=== PATIENT | male | born 1930 | race Caucasian/White ===

== ENCOUNTER 2016-10-24 08:23 | Inpatient (IN) | payer MEDICARE, OTHER ==
[2016-10-24] MEDS ORDERED: Polyvinyl Alcohol 1.4% Ophth Soln 15 ML Bottle EYEBOTH PRN (12:29)
[2016-10-24] MEDS ORDERED: Calcium Carbonate 500 MG Tab.Chew PO PRN (12:29)
[2016-10-24] MEDS ORDERED: Lactulose Soln 10 GM/15 ML 15 ML UD Cup PO PRN (12:29)
[2016-10-24] MEDS: Acetaminophen 500 MG Tab PO SCH ×2 (14:32→20:35)
--- NOTE | 2016-10-24 18:41 | PCM.HP ---
H&P History of Present Illness - General Date of Service: 10/24/16 Admit Problem/Dx: Admission Diagnosis/Problem Admission Diagnosis/Problem Fracture of femur Source of Information: [facility] Records History Limitations: Reports: No Limitations - History of Present Illness Initial Comments - Free Text/Narative: This is a 86-year-old male patient that fell less than a week ago broke his right hip. Seen in [facility] and had a partial hip replacement. He is doing well and is transferred here for swing bed. He says he has some pain. He has no other concerns. Back Pain Score (Numeric/FACES): 9 - Related Data Allergies/Adverse Reactions: Allergies Allergy/AdvReac Type Severity Reaction Status Date / Time fentanyl Allergy Rash Verified 10/24/16 10:58 Home Medications: Home Meds Acetaminophen [Tylenol Extra Strength] 1,000 mg PO TID 10/24/16 [History] Calcium Carbonate [Tums] 1,000 mg PO Q4H PRN 10/24/16 [History] Calcium Carbonate [Tums] 500 mg PO BID 10/24/16 [History] Cholecalciferol (Vitamin D3) [Vitamin D3] 2,000 units PO DAILY 10/24/16 [History ] Dextran 70/Hypromellose [Artificial Tears] 1 drop EYEBOTH Q4H PRN 10/24/16 [ History] Docusate Sodium [Colace] 100 mg PO DAILY 10/24/16 [History] Docusate Sodium [Colace] 300 mg PO BEDTIME 10/24/16 [History] Donepezil [Aricept] 5 mg PO BEDTIME 10/24/16 [History] Enalapril [Vasotec] 5 mg PO DAILY 10/24/16 [History] Enoxaparin [Lovenox] 40 mg SUBCUT DAILY 10/24/16 [History] Gabapentin [Gabapentin] 300 mg PO BID 10/24/16 [History] Lactulose 10 gm PO DAILY PRN 10/24/16 [History] Metoprolol Tartrate [Lopressor] 12.5 mg PO BID 10/24/16 [History] Polyethylene Glycol 3350 [MiraLAX] 17 gm PO DAILY 10/24/16 [History] Ranitidine [Zantac] 150 mg PO BID 10/24/16 [History] Sennosides/Docusate Sodium [Senokot-S Tablet] 1 each PO BID 10/24/16 [History] Tamsulosin [Tamsulosin 24 Hr] 0.4 mg PO DAILY 10/24/16 [History] oxyCODONE 5 mg PO Q6H PRN 10/24/16 [History] oxyCODONE [Oxycodone HCl] 10 mg PO Q4H PRN 10/24/16 [History] Past Medical History HEENT History: Reports: Cataract, Glaucoma Other HEENT History: Presbyopia, astigmatism, retinal disorder, hypermetropia, blepharitis Cardiovascular History: Reports: Hypertension Gastrointestinal History: Reports: GERD Musculoskeletal History: Reports: Arthritis, Osteoarthritis Neurological History: Reports: Alzheimers Disease Psychiatric History: Reports: Alzheimers Disease, Dementia Other Oncologic History: chronic lymphocytic leukemia - Infectious Disease History Infectious Disease History: Reports: Chicken Pox, Measles, Mumps - Past Surgical History HEENT Surgical History: Reports: None GI Surgical History: Reports: None Other Neurological Surgeries/Procedures: spinal implant Musculoskeletal Surgical History: Reports: Other (See Below) Other Musculoskeletal Surgeries/Procedures:: hip surgery, current. Back pain, spinal implant Social & Family History - Family History Family Medical History: Noncontributory - Tobacco Use Smoking Status *Q: Former Smoker Used Tobacco, but Quit: Yes Month Tobacco Last Used: October Second Hand Smoke Exposure: No - Caffeine Use Caffeine Use: Reports: None - Alcohol Use Days Per Week of Alcohol Use: 7 Number of Drinks Per Day: 1 Total Drinks Per Week: 7 - Recreational Drug Use Recreational Drug Use: No H&P Review of Systems - Review of Systems: Review Of Systems: See Below General: Reports: No Symptoms HEENT: Reports: No Symptoms Pulmonary: Reports: No Symptoms Cardiovascular: Reports: No Symptoms Gastrointestinal: Reports: No Symptoms Genitourinary: Reports: No Symptoms Musculoskeletal: Reports: Joint Pain Skin: Reports: No Symptoms Psychiatric: Reports: No Symptoms Neurological: Reports: No Symptoms Hematologic/Lymphatic: Reports: No Symptoms Immunologic: Reports: No Symptoms Exam - Exam Exam: See Below - Vital Signs Vital Signs: Last Vital Signs Temp 98.1 F 10/24/16 12:26 Pulse 82 10/24/16 12:26 Resp 16 10/24/16 12:26 BP 84/45 L 10/24/16 12:26 Pulse Ox 95 10/24/16 12:26 Weight: 169 lb 15.622 oz - Exam General: Alert, Oriented, Cooperative HEENT: Posterior Pharynx Clear, TMs Clear Neck: Supple, Trachea Midline Lungs: Clear to Auscultation, Normal Respiratory Effort Cardiovascular: Regular Rate, Regular Rhythm. No: Systolic Murmur Abdomen: Normal Bowel Sounds, Soft. No: Peritoneal Signs, Distention, Guarding Back Exam: Normal Inspection Extremities: Normal Inspection Skin: Other (Wound right hip is healed nicely. No erythema or drainage.) Neurological: Normal Tone Neuro Extensive - Mental Status: Alert, Oriented x3, Normal Mood/Affect, Normal Cognition Neuro Extensive - Motor, Sensory, Reflexes: No: Normal Gait Psychiatric: Alert, Normal Affect, Normal Mood *Q Meaningful Use (ADM) - VTE *Q VTE Criteria *Q: - Stroke *Q Stroke Criteria *Q: - AMI *Q AMI Criteria *Q: - Problem List (1) H/O total hip arthroplasty SNOMED Code(s): 380603075496, [id number] ICD Code: Z96.649 - PRESENCE OF UNSPECIFIED ARTIFICIAL HIP JOINT Status: Acute Current Visit: Yes Problem List Initiated/Reviewed/Updated: Yes Orders Last 24hrs: Active Orders 24 hr Category Date Time Status Patient Status [ADT] Routine ADT 10/24/16 12:26 Active Oxygen Therapy [RC] PRN Care 10/24/16 12:26 Active Up With Assistance [RC] ASDIRECTED Care 10/24/16 12:26 Active Vital Signs [RC] 08 Care 10/24/16 12:26 Active Weight [Height and Weight] [RC] .qTue Care 10/24/16 14:44 Active OT Evaluation and Treatment [CONS] Routine Cons 10/24/16 12:26 Active PT Evaluation and Treatment [CONS] Routine Cons 10/24/16 12:26 Active Regular Diet [DIET] Diet 10/24/16 Dinner Active Acetaminophen [Tylenol Extra Strength] Med 10/24/16 14:00 Active 1,000 mg PO TID Calcium Carbonate [Tums] Med 10/24/16 12:29 Active 1,000 mg PO Q4H PRN Calcium Carbonate [Tums] Med 10/24/16 21:00 Active 500 mg PO BID Cholecalciferol (Vitamin D3) [Vitamin D3] Med 10/25/16 09:00 Active 2,000 units PO DAILY Docusate Sodium [Colace] Med 10/25/16 09:00 Active 100 mg PO DAILY Docusate Sodium [Colace] Med 10/24/16 21:00 Active 300 mg PO BEDTIME Docusate Sodium/Sennosides [Senna Plus] Med 10/24/16 21:00 Active 1 tab PO BID Donepezil [Aricept] Med 10/24/16 21:00 Active 5 mg PO BEDTIME Enalapril [Vasotec] Med 10/25/16 09:00 Active 5 mg PO DAILY Enoxaparin [Lovenox] Med 10/25/16 09:00 Active 40 mg SUBCUT DAILY Famotidine [Pepcid] Med 10/24/16 21:00 Active 20 mg PO BID Gabapentin [Neurontin] Med 10/24/16 21:00 Active 300 mg PO BID Lactulose [Chronulac] Med 10/24/16 12:29 Active 10 gm PO DAILY PRN Metoprolol Tartrate [Lopressor] Med 10/24/16 21:00 Active 12.5 mg PO BID Polyethylene Glycol 3350 [MiraLAX] Med 10/25/16 09:00 Active 17 gm PO DAILY Polyvinyl Alcohol [LiquiTears 1.4% Ophth Soln] Med 10/24/16 12:29 Active 0 ml EYEBOTH Q4H PRN Tamsulosin [Flomax] Med 10/25/16 09:00 Active 0.4 mg PO DAILY oxyCODONE Med 10/24/16 12:29 Active 10 mg PO Q4H PRN oxyCODONE Med 10/24/16 12:29 Active 5 mg PO Q6H PRN Resuscitation Status Routine Resus Stat 10/24/16 12:26 Ordered Medication Orders Acetaminophen (Tylenol Extra Strength) 1,000 mg PO TID [facility] Last Admin: 10/24/16 14:32 Dose: 1,000 mg Artificial Tears (Liquitears 1.4% Ophth Soln) 0 ml EYEBOTH Q4H PRN PRN Reason: Dry Eyes Calcium Carbonate/Glycine (Tums) 500 mg PO BID [facility] Calcium Carbonate/Glycine (Tums) 1,000 mg PO Q4H PRN PRN Reason: Heartburn Cholecalciferol (Vitamin D3) 2,000 units PO DAILY [facility] Docusate Sodium (Colace) 100 mg PO DAILY [facility] Docusate Sodium (Colace) 300 mg PO BEDTIME [facility] Donepezil HCl (Aricept) 5 mg PO BEDTIME [facility] Enalapril Maleate (Vasotec) 5 mg PO DAILY [facility] Enoxaparin Sodium (Lovenox) 40 mg SUBCUT DAILY [facility] Famotidine (Pepcid) 20 mg PO BID [facility] Gabapentin (Neurontin) 300 mg PO BID [facility] Lactulose (Chronulac) 10 gm PO DAILY PRN PRN Reason: Constipation Metoprolol Tartrate (Lopressor) 12.5 mg PO BID [facility] Oxycodone HCl (Oxycodone) 5 mg PO Q6H PRN PRN Reason: Pain (moderate 4-6) Oxycodone HCl (Oxycodone) 10 mg PO Q4H PRN PRN Reason: Pain (severe 7-10) Polyethylene Glycol (Miralax) 17 gm PO DAILY [facility] Senna/Docusate Sodium (Senna Plus) 1 tab PO BID [facility] Tamsulosin HCl (Flomax) 0.4 mg PO DAILY [facility] Assessment/Plan Comment:: 1. Admit to swing bed for PT/OT. 2. Regular diet. 3. Up per PT/OT. 5. Full code.
[2016-10-24] MEDS: oxyCODONE 5 MG Tab PO PRN (20:21)
[2016-10-24] MEDS: Donepezil 5 MG Tab PO SCH (20:35)
[2016-10-24] MEDS: Gabapentin 300 MG Cap PO SCH (20:35)
[2016-10-24] MEDS: Famotidine 20 MG Tab PO SCH (20:35)
[2016-10-24] MEDS: Docusate Sodium 100 MG Cap PO SCH (20:35)
[2016-10-24] MEDS: Metoprolol Tartrate 25 MG Tab PO SCH (20:36)
[2016-10-24] MEDS: Calcium Carbonate 500 MG Tab.Chew PO SCH (20:36)
[2016-10-25] MEDS: oxyCODONE 5 MG Tab PO PRN ×3 (06:51→18:55)
[2016-10-25] MEDS: Metoprolol Tartrate 25 MG Tab PO SCH ×2 (08:57→20:42)
[2016-10-25] MEDS: Tamsulosin 0.4 MG Cap.ER PO SCH (08:57)
[2016-10-25] MEDS: Docusate Sodium 100 MG Cap PO SCH ×2 (08:57→20:40)
[2016-10-25] MEDS: Famotidine 20 MG Tab PO SCH ×2 (08:58→20:41)
[2016-10-25] MEDS: Calcium Carbonate 500 MG Tab.Chew PO SCH (08:58)
[2016-10-25] MEDS: Enoxaparin 40 MG/0.4 ML Syringe SUBCUT SCH (08:58)
[2016-10-25] MEDS: Enalapril 5 MG Tab PO SCH (08:58)
[2016-10-25] MEDS: Cholecalciferol (Vitamin D3) 1,000 Unit Tab PO SCH (08:58)
[2016-10-25] MEDS: Gabapentin 300 MG Cap PO SCH ×2 (08:58→20:41)
[2016-10-25] MEDS: Acetaminophen 500 MG Tab PO SCH ×3 (08:58→20:42)
[2016-10-25] MEDS: Polyethylene Glycol 3350 Powder 17 GM Packet PO SCH (08:58)
[2016-10-25] MEDS ORDERED: Magnesium Hydroxide 400 MG/5 ML Susp 30 ML Cup PO PRN (13:52)
[2016-10-25] MEDS: Donepezil 5 MG Tab PO SCH (20:39)
[2016-10-26] MEDS: Calcium Carbonate 500 MG Tab.Chew PO SCH ×4 (00:56→21:06)
[2016-10-26] MEDS: Docusate Sodium 100 MG Cap PO SCH ×2 (09:29→21:07)
[2016-10-26] MEDS: Metoprolol Tartrate 25 MG Tab PO SCH ×2 (09:29→21:07)
[2016-10-26] MEDS: Tamsulosin 0.4 MG Cap.ER PO SCH (09:29)
[2016-10-26] MEDS: Polyethylene Glycol 3350 Powder 17 GM Packet PO SCH (09:30)
[2016-10-26] MEDS: Gabapentin 300 MG Cap PO SCH ×2 (09:30→21:06)
[2016-10-26] MEDS: Enoxaparin 40 MG/0.4 ML Syringe SUBCUT SCH (09:30)
[2016-10-26] MEDS: Acetaminophen 500 MG Tab PO SCH ×3 (09:31→21:06)
[2016-10-26] MEDS: Cholecalciferol (Vitamin D3) 1,000 Unit Tab PO SCH (09:31)
[2016-10-26] MEDS: Enalapril 5 MG Tab PO SCH (09:31)
[2016-10-26] MEDS: Famotidine 20 MG Tab PO SCH ×2 (09:46→21:05)
[2016-10-26] MEDS: oxyCODONE 5 MG Tab PO PRN ×2 (13:17→18:27)
[2016-10-26] MEDS: Donepezil 5 MG Tab PO SCH (21:06)
[2016-10-27] MEDS: oxyCODONE 5 MG Tab PO PRN ×3 (04:39→18:55)
[2016-10-27] MEDS: Enoxaparin 40 MG/0.4 ML Syringe SUBCUT SCH (09:13)
[2016-10-27] MEDS: Tamsulosin 0.4 MG Cap.ER PO SCH (09:13)
[2016-10-27] MEDS: Polyethylene Glycol 3350 Powder 17 GM Packet PO SCH (09:13)
[2016-10-27] MEDS: Metoprolol Tartrate 25 MG Tab PO SCH ×2 (09:13→20:35)
[2016-10-27] MEDS: Docusate Sodium 100 MG Cap PO SCH ×2 (09:13→20:34)
[2016-10-27] MEDS: Cholecalciferol (Vitamin D3) 1,000 Unit Tab PO SCH (09:14)
[2016-10-27] MEDS: Enalapril 5 MG Tab PO SCH (09:14)
[2016-10-27] MEDS: Gabapentin 300 MG Cap PO SCH ×2 (09:14→20:38)
[2016-10-27] MEDS: Acetaminophen 500 MG Tab PO SCH ×3 (09:14→20:39)
[2016-10-27] MEDS: Famotidine 20 MG Tab PO SCH ×2 (09:14→20:39)
[2016-10-27] MEDS: Calcium Carbonate 500 MG Tab.Chew PO SCH ×2 (09:14→20:39)
[2016-10-27] MEDS: Donepezil 5 MG Tab PO SCH (20:34)
[2016-10-28] MEDS: oxyCODONE 5 MG Tab PO PRN ×2 (00:43→20:52)
[2016-10-28] MEDS: Metoprolol Tartrate 25 MG Tab PO SCH ×2 (08:10→20:47)
[2016-10-28] MEDS: Docusate Sodium 100 MG Cap PO SCH ×2 (08:10→20:44)
[2016-10-28] MEDS: Tamsulosin 0.4 MG Cap.ER PO SCH (08:10)
[2016-10-28] MEDS: Enoxaparin 40 MG/0.4 ML Syringe SUBCUT SCH (08:11)
[2016-10-28] MEDS: Gabapentin 300 MG Cap PO SCH ×2 (08:12→20:45)
[2016-10-28] MEDS: Famotidine 20 MG Tab PO SCH ×2 (08:12→20:46)
[2016-10-28] MEDS: Acetaminophen 500 MG Tab PO SCH ×3 (08:13→20:48)
[2016-10-28] MEDS: Enalapril 5 MG Tab PO SCH (08:13)
[2016-10-28] MEDS: Cholecalciferol (Vitamin D3) 1,000 Unit Tab PO SCH (08:14)
[2016-10-28] MEDS: Polyethylene Glycol 3350 Powder 17 GM Packet PO SCH (08:15)
[2016-10-28] MEDS: Calcium Carbonate 500 MG Tab.Chew PO SCH ×2 (08:15→20:48)
[2016-10-28] MEDS: Donepezil 5 MG Tab PO SCH (20:44)
[2016-10-29] MEDS: oxyCODONE 5 MG Tab PO PRN ×3 (04:03→20:15)
[2016-10-29] MEDS: Docusate Sodium 100 MG Cap PO SCH ×2 (08:22→20:08)
[2016-10-29] MEDS: Tamsulosin 0.4 MG Cap.ER PO SCH (08:25)
[2016-10-29] MEDS: Metoprolol Tartrate 25 MG Tab PO SCH ×2 (08:26→20:11)
[2016-10-29] MEDS: Enoxaparin 40 MG/0.4 ML Syringe SUBCUT SCH (08:27)
[2016-10-29] MEDS: Gabapentin 300 MG Cap PO SCH ×2 (08:29→20:09)
[2016-10-29] MEDS: Polyethylene Glycol 3350 Powder 17 GM Packet PO SCH (08:29)
[2016-10-29] MEDS: Famotidine 20 MG Tab PO SCH ×2 (08:30→20:10)
[2016-10-29] MEDS: Calcium Carbonate 500 MG Tab.Chew PO SCH ×2 (08:31→20:12)
[2016-10-29] MEDS: Acetaminophen 500 MG Tab PO SCH ×3 (08:31→20:12)
[2016-10-29] MEDS: Enalapril 5 MG Tab PO SCH (08:32)
[2016-10-29] MEDS: Cholecalciferol (Vitamin D3) 1,000 Unit Tab PO SCH (08:32)
[2016-10-29] MEDS: Donepezil 5 MG Tab PO SCH (20:08)
[2016-10-30] MEDS: oxyCODONE 5 MG Tab PO PRN ×3 (07:50→22:02)
[2016-10-30] MEDS: Docusate Sodium 100 MG Cap PO SCH ×2 (09:40→20:54)
[2016-10-30] MEDS: Metoprolol Tartrate 25 MG Tab PO SCH ×2 (09:41→21:05)
[2016-10-30] MEDS: Tamsulosin 0.4 MG Cap.ER PO SCH (09:41)
[2016-10-30] MEDS: Enoxaparin 40 MG/0.4 ML Syringe SUBCUT SCH (09:43)
[2016-10-30] MEDS: Gabapentin 300 MG Cap PO SCH ×2 (09:44→20:55)
[2016-10-30] MEDS: Polyethylene Glycol 3350 Powder 17 GM Packet PO SCH (09:44)
[2016-10-30] MEDS: Famotidine 20 MG Tab PO SCH ×2 (09:45→20:55)
[2016-10-30] MEDS: Calcium Carbonate 500 MG Tab.Chew PO SCH ×2 (09:45→20:55)
[2016-10-30] MEDS: Acetaminophen 500 MG Tab PO SCH ×3 (09:46→20:55)
[2016-10-30] MEDS: Enalapril 5 MG Tab PO SCH (09:46)
[2016-10-30] MEDS: Cholecalciferol (Vitamin D3) 1,000 Unit Tab PO SCH (09:47)
[2016-10-30] MEDS: Donepezil 5 MG Tab PO SCH (20:54)
[2016-10-31] MEDS: oxyCODONE 5 MG Tab PO PRN ×2 (06:51→16:44)
[2016-10-31] MEDS: Metoprolol Tartrate 25 MG Tab PO SCH ×2 (08:45→20:01)
[2016-10-31] MEDS: Docusate Sodium 100 MG Cap PO SCH ×2 (08:45→20:00)
[2016-10-31] MEDS: Tamsulosin 0.4 MG Cap.ER PO SCH (08:45)
[2016-10-31] MEDS: Famotidine 20 MG Tab PO SCH ×2 (08:46→20:03)
[2016-10-31] MEDS: Enalapril 5 MG Tab PO SCH (08:46)
[2016-10-31] MEDS: Gabapentin 300 MG Cap PO SCH ×2 (08:46→20:02)
[2016-10-31] MEDS: Calcium Carbonate 500 MG Tab.Chew PO SCH ×2 (08:46→20:03)
[2016-10-31] MEDS: Acetaminophen 500 MG Tab PO SCH ×3 (08:46→20:04)
[2016-10-31] MEDS: Cholecalciferol (Vitamin D3) 1,000 Unit Tab PO SCH (08:47)
[2016-10-31] MEDS: Polyethylene Glycol 3350 Powder 17 GM Packet PO SCH (08:49)
[2016-10-31] MEDS: Enoxaparin 40 MG/0.4 ML Syringe SUBCUT SCH (08:49)
[2016-10-31] MEDS: Donepezil 5 MG Tab PO SCH (19:59)
[2016-11-01] MEDS: Tamsulosin 0.4 MG Cap.ER PO SCH (08:47)
[2016-11-01] MEDS: Metoprolol Tartrate 25 MG Tab PO SCH ×2 (08:47→20:59)
[2016-11-01] MEDS: Enoxaparin 40 MG/0.4 ML Syringe SUBCUT SCH (08:47)
[2016-11-01] MEDS: Docusate Sodium 100 MG Cap PO SCH ×2 (08:47→20:59)
[2016-11-01] MEDS: Polyethylene Glycol 3350 Powder 17 GM Packet PO SCH (08:48)
[2016-11-01] MEDS: Gabapentin 300 MG Cap PO SCH ×2 (08:48→21:00)
[2016-11-01] MEDS: Famotidine 20 MG Tab PO SCH ×2 (08:48→21:00)
[2016-11-01] MEDS: Cholecalciferol (Vitamin D3) 1,000 Unit Tab PO SCH (08:50)
[2016-11-01] MEDS: Calcium Carbonate 500 MG Tab.Chew PO SCH ×2 (08:50→21:01)
[2016-11-01] MEDS: Acetaminophen 500 MG Tab PO SCH ×3 (08:50→21:01)
[2016-11-01] MEDS: Enalapril 5 MG Tab PO SCH (08:50)
[2016-11-01] MEDS: oxyCODONE 5 MG Tab PO PRN ×2 (08:53→17:23)
[2016-11-01] MEDS: Donepezil 5 MG Tab PO SCH (20:59)
[2016-11-02] MEDS: oxyCODONE 5 MG Tab PO PRN ×3 (08:28→20:15)
[2016-11-02] MEDS: Docusate Sodium 100 MG Cap PO SCH ×2 (08:31→20:16)
[2016-11-02] MEDS: Tamsulosin 0.4 MG Cap.ER PO SCH (08:31)
[2016-11-02] MEDS: Metoprolol Tartrate 25 MG Tab PO SCH ×2 (08:31→20:16)
[2016-11-02] MEDS: Enoxaparin 40 MG/0.4 ML Syringe SUBCUT SCH (08:33)
[2016-11-02] MEDS: Polyethylene Glycol 3350 Powder 17 GM Packet PO SCH (08:34)
[2016-11-02] MEDS: Famotidine 20 MG Tab PO SCH ×2 (08:34→20:17)
[2016-11-02] MEDS: Gabapentin 300 MG Cap PO SCH ×2 (08:34→20:17)
[2016-11-02] MEDS: Calcium Carbonate 500 MG Tab.Chew PO SCH ×2 (08:35→20:17)
[2016-11-02] MEDS: Acetaminophen 500 MG Tab PO SCH ×3 (08:35→20:17)
[2016-11-02] MEDS: Cholecalciferol (Vitamin D3) 1,000 Unit Tab PO SCH (08:36)
[2016-11-02] MEDS: Enalapril 5 MG Tab PO SCH (08:36)
[2016-11-02] MEDS: Donepezil 5 MG Tab PO SCH (20:16)
[2016-11-03] MEDS: oxyCODONE 5 MG Tab PO PRN ×3 (07:48→22:16)
[2016-11-03] MEDS: Metoprolol Tartrate 25 MG Tab PO SCH ×2 (08:42→20:50)
[2016-11-03] MEDS: Tamsulosin 0.4 MG Cap.ER PO SCH (08:42)
[2016-11-03] MEDS: Docusate Sodium 100 MG Cap PO SCH ×2 (08:42→20:48)
[2016-11-03] MEDS: Famotidine 20 MG Tab PO SCH ×2 (08:43→20:49)
[2016-11-03] MEDS: Enoxaparin 40 MG/0.4 ML Syringe SUBCUT SCH (08:43)
[2016-11-03] MEDS: Cholecalciferol (Vitamin D3) 1,000 Unit Tab PO SCH (08:43)
[2016-11-03] MEDS: Enalapril 5 MG Tab PO SCH (08:43)
[2016-11-03] MEDS: Acetaminophen 500 MG Tab PO SCH ×3 (08:43→20:50)
[2016-11-03] MEDS: Calcium Carbonate 500 MG Tab.Chew PO SCH ×2 (08:43→20:49)
[2016-11-03] MEDS: Gabapentin 300 MG Cap PO SCH ×2 (08:43→20:48)
[2016-11-03] MEDS: Polyethylene Glycol 3350 Powder 17 GM Packet PO SCH (08:43)
[2016-11-03] MEDS: Donepezil 5 MG Tab PO SCH (20:54)
[2016-11-04] MEDS: oxyCODONE 5 MG Tab PO PRN (08:26)
[2016-11-04] MEDS: Enoxaparin 40 MG/0.4 ML Syringe SUBCUT SCH (08:27)
[2016-11-04] MEDS: Tamsulosin 0.4 MG Cap.ER PO SCH (08:27)
[2016-11-04] MEDS: Metoprolol Tartrate 25 MG Tab PO SCH ×2 (08:27→20:45)
[2016-11-04] MEDS: Docusate Sodium 100 MG Cap PO SCH (08:27)
[2016-11-04] MEDS: Polyethylene Glycol 3350 Powder 17 GM Packet PO SCH (08:28)
[2016-11-04] MEDS: Cholecalciferol (Vitamin D3) 1,000 Unit Tab PO SCH (08:28)
[2016-11-04] MEDS: Famotidine 20 MG Tab PO SCH (08:29)
[2016-11-04] MEDS: Calcium Carbonate 500 MG Tab.Chew PO SCH ×2 (08:29→20:47)
[2016-11-04] MEDS: Gabapentin 300 MG Cap PO SCH (08:29)
[2016-11-04] MEDS: Enalapril 5 MG Tab PO SCH (08:30)
[2016-11-04] MEDS: Acetaminophen 500 MG Tab PO SCH ×3 (08:30→20:49)
[2016-11-04] MEDS: Ibuprofen 600 MG Tab PO PRN (16:16)
[2016-11-04] MEDS: Donepezil 5 MG Tab PO SCH (20:44)
[2016-11-05] MEDS: Ibuprofen 600 MG Tab PO PRN ×3 (00:14→16:17)
[2016-11-05] MEDS: Metoprolol Tartrate 25 MG Tab PO SCH ×2 (08:21→20:00)
[2016-11-05] MEDS: Tamsulosin 0.4 MG Cap.ER PO SCH (08:22)
[2016-11-05] MEDS: Polyethylene Glycol 3350 Powder 17 GM Packet PO SCH (08:22)
[2016-11-05] MEDS: Enoxaparin 40 MG/0.4 ML Syringe SUBCUT SCH (08:22)
[2016-11-05] MEDS: Cholecalciferol (Vitamin D3) 1,000 Unit Tab PO SCH (08:23)
[2016-11-05] MEDS: Acetaminophen 500 MG Tab PO SCH ×3 (08:23→20:01)
[2016-11-05] MEDS: Calcium Carbonate 500 MG Tab.Chew PO SCH ×2 (08:23→20:02)
[2016-11-05] MEDS: Donepezil 5 MG Tab PO SCH (20:00)
[2016-11-06] MEDS: Tamsulosin 0.4 MG Cap.ER PO SCH (08:02)
[2016-11-06] MEDS: Enoxaparin 40 MG/0.4 ML Syringe SUBCUT SCH (08:02)
[2016-11-06] MEDS: Metoprolol Tartrate 25 MG Tab PO SCH ×2 (08:02→20:49)
[2016-11-06] MEDS: Acetaminophen 500 MG Tab PO SCH ×3 (08:03→20:51)
[2016-11-06] MEDS: Calcium Carbonate 500 MG Tab.Chew PO SCH ×2 (08:03→20:50)
[2016-11-06] MEDS: Polyethylene Glycol 3350 Powder 17 GM Packet PO SCH (08:03)
[2016-11-06] MEDS: Cholecalciferol (Vitamin D3) 1,000 Unit Tab PO SCH (08:03)
[2016-11-06] MEDS: Ibuprofen 600 MG Tab PO PRN ×2 (09:15→18:29)
[2016-11-06] MEDS: Donepezil 5 MG Tab PO SCH (20:48)
[2016-11-07 08:25] VITALS: BP 120/70
[2016-11-07] MEDS: Ibuprofen 600 MG Tab PO PRN (08:28)
[2016-11-07] MEDS: Tamsulosin 0.4 MG Cap.ER PO SCH (08:29)
[2016-11-07] MEDS: Polyethylene Glycol 3350 Powder 17 GM Packet PO SCH (08:29)
[2016-11-07] MEDS: Enoxaparin 40 MG/0.4 ML Syringe SUBCUT SCH (08:29)
[2016-11-07] MEDS: Calcium Carbonate 500 MG Tab.Chew PO SCH (08:30)
[2016-11-07] MEDS: Metoprolol Tartrate 25 MG Tab PO SCH (08:30)
[2016-11-07] MEDS: Cholecalciferol (Vitamin D3) 1,000 Unit Tab PO SCH (08:30)
[2016-11-07] MEDS: Acetaminophen 500 MG Tab PO SCH (08:30)
--- NOTE | 2016-11-07 08:59 | PN ---
DATE SEEN: 11/04/2016 SUBJECTIVE: Mr. Bermudez is an 86-year-old retired [employer] worker who lives with his in [place], [place]. The patient states that he was in his house when he turned and tripped falling to the floor sustaining an injury to the right hip. He was taken by ambulance to [facility] in [place] where he underwent ORIF of the right hip fracture on 10/19/2016. Following the acute hospitalization, he was discharged to [facility] [place] on 10/24/2016 where he has been undergoing physical therapy. He states he is getting better, but quite slowly. He is tolerating the physical therapy, but does report pain with movement of the right leg still. PAST MEDICAL HISTORY: Significant for mild cognitive deficits, early dementia, chronic essential hypertension, osteoarthritis of the lumbar spine, CLL, and glaucoma. REVIEW OF SYSTEMS: Negative for fever, chills, or headache. No recent URI symptoms. No cough or dyspnea. No chest pain or palpitations. No abdominal pain. He does have a problem with chronic constipation. No hematochezia or melena. No swelling or skin rash. OBJECTIVE: GENERAL: He is alert and comfortable. He is slightly forgetful to history-taking, although he is alert and conversant. VITAL SIGNS: Blood pressure 125/73, pulse 99 and regular, respirations 18, temperature 98.1, and O2 saturation 95% on room air. SKIN: Clear without rash. He has a well-healing small incision over his right greater trochanter. HEENT: Shows pupils to be equal and reactive. Throat clear. Mouth dry. LUNGS: Clear to the bases. HEART: Regular without murmur or gallop. ABDOMEN: Normal bowel sounds. Soft. He does have slight tenderness to palpation in left lower quadrant of his abdomen. No guarding or rebound. Extremities are warm and well perfused. There is no edema. The left lower extremity range of motion is full, and right lower extremity testing reveals the ability to lift his leg up off the bed one foot high at the heel with discomfort in the hip. However, the hip is comfortable to mild internal and external rotation and passive flexion of the right hip. LABORATORY DATA: Pending. ASSESSMENT: 1. An 86-year-old man with right hip fractures now two weeks status post open reduction and internal fixation, healing adequately. 2. Mild cognitive deficits consistent with early dementia. 3. Chronic essential hypertension. 4. Constipation, exacerbated by narcotic medication. 5. Benign prostatic hyperplasia. 6. History of chronic lymphocytic leukemia. 7. History of low back pain. 8. Chronic essential hypertension. PLAN: We will continue physical therapy and switch his analgesics off the narcotics to ibuprofen. Continue DVT prophylaxis with enoxaparin, watching for any GI upset. I anticipate Mr. Bermudez will require several more days of therapy with plans to return home with his . In addition to the acute therapy for his ORIF, we will continue palliative care measures for his discomfort and his dementia. /[id number] MARIANA/SCOTT
--- NOTE | 2016-11-07 12:59 | DISCH ---
DISCHARGE DATE: 11/07/2016 PRIMARY FINAL DIAGNOSIS: Right hip fractures status post open reduction and internal fixation. OTHER DIAGNOSES: Chronic essential hypertension, osteoarthritis, chronic lymphocytic leukemia, glaucoma, mild cognitive deficits with early dementia. OPERATIONS: ORIF right hip in [place] on 10/19/2016. COMPLICATIONS: None. SUMMARY: Mr. Bermudez is an 86-year-old man from [place], who underwent ORIF of the right hip after fracture on October 19. Recuperation was somewhat slow and he was sent from acute care down to swing bed for further recuperation at [place]. He has been getting physical therapy regularly. He is using analgesics for pain medications and he is steadily making progress. He is deemed now strong enough for discharge to home with home health care. PHYSICAL EXAMINATION: GENERAL: Reveals him to be alert and comfortable. He is mildly forgetful but conversant. VITAL SIGNS: Blood pressure 120/70, pulse 93, respirations 18, temperature 98, O2 saturation 97% on room air. Respirations are easy. The pulse is regular. EXTREMITIES: He does have discomfort with movement of the lower right leg, no significant edema is present. LABORATORY DATA: Done on [place] 05 [place] [address], hemoglobin 12.1 g, and platelets 631. Electrolytes normal. Creatinine 0.8. DISCHARGE MEDICATIONS: The patient is discharged to home with home health care to continue medications as follows: 1. Flomax 0.4 mg daily. 2. Aleve 1 tablet b.i.d. p.r.n. pain. 3. Gabapentin 300 mg b.i.d. 4. Enoxaparin 40 mg subcu daily x10 more days, completing on 11/17/2016. 5. Enalapril 5 mg daily. 6. [id number] mg every 4 hours p.r.n. heartburn. 7. Tylenol with codeine, one tab every 6 hours p.r.n. pain #12 dispensed. 8. Artificial Tears p.r.n. 9. MiraLAX 1 scoop full daily. 10.Metoprolol 12.5 mg b.i.d. 11.Aricept 5 mg daily. 12.Senokot S 1 b.i.d. 13.Vitamin D3 1000 units daily. 14.Calcium 500 mg b.i.d. 15.Tylenol p.r.n. He will have home health care follow up. He is to keep an appointment as scheduled for the end of November with Dr. Mcnair at [facility] and have follow up prior to that on a p.r.n. basis. /[id number] MARIANA/SCOTT
== END 2016-11-07 12:45 | disposition home health service (06) | DRG 561 ==
LOC: FB.MS 11:55
PROVIDERS: ADMIT Family Medicine; ATTEND Family Medicine
DX: S72.91XD Unspecified fracture of right femur, subsequent encounter for closed fracture with routine healing (principal); W19.XXXD Unspecified fall, subsequent encounter; Z98.890 Other specified postprocedural states; I10 Essential (primary) hypertension; K21.9 Gastro-esophageal reflux disease without esophagitis; M19.90 Unspecified osteoarthritis, unspecified site; H40.9 Unspecified glaucoma; Z87.891 Personal history of nicotine dependence; K59.09 Other constipation; N40.0 Benign prostatic hyperplasia without lower urinary tract symptoms; Z88.8 Allergy status to other drugs, medicaments and biological substances; Z85.6 Personal history of leukemia; G31.84 Mild cognitive impairment of uncertain or unknown etiology
CPT/HCPCS: 36415; 80053; 85025; 97110-GP; 97116-GP; 97161-GP; 97166-GO; 97530-GO; 97530-GO-KX; 97530-GP; 97535-GO; A9270-GY; J1650

== ENCOUNTER 2017-06-20 21:10 | Emergency (ER) | payer MEDICARE, OTHER ==
[2017-06-20 21:25] VITALS: BP 142/66
--- NOTE | 2017-06-20 21:56 | EDM.PDOC ---
ED HPI GENERAL MEDICAL PROBLEM - General Chief Complaint: Fever Stated Complaint: FEVER,POOR BALANCE Time Seen by Provider: 06/20/17 21:50 Source of Information: Reports: Patient History Limitations: Reports: No Limitations - History of Present Illness INITIAL COMMENTS - FREE TEXT/NARRATIVE: c/o nonproductive cough and fever x 2d emesis x 1, poor appetite, weak, rhinorrhea called Dr Bowden's office and his nurse called in Rx for Z-irasema, taken one dose has had flu vax and pneumovax no CV or pul hx, smoked in distant past lives with , has significant dementia uses a walker, unsteady on feet, has not been faling - Related Data Allergies Allergy/AdvReac Type Severity Reaction Status Date / Time fentanyl Allergy Rash Verified 10/24/16 10:58 Home Meds: Home Meds Acetaminophen [Tylenol Extra Strength] 1,000 mg PO TID 10/24/16 [History] Donepezil [Aricept] 5 mg PO BEDTIME 10/24/16 [History] Enalapril [Vasotec] 5 mg PO DAILY 10/24/16 [History] Gabapentin 300 mg PO BID 10/24/16 [History] Sennosides/Docusate Sodium [Senokot-S Tablet] 1 each PO BID 10/24/16 [History] Tamsulosin [Flomax] 0.4 mg PO DAILY #30 cap.er 11/07/16 [Rx] Oseltamivir [Tamiflu] 75 mg PO BID #9 cap 06/20/17 [Rx] Past Medical History HEENT History: Reports: Cataract, Glaucoma, Impaired Vision Other HEENT History: Presbyopia, astigmatism, retinal disorder, hypermetropia, blepharitis Cardiovascular History: Reports: Hypertension Gastrointestinal History: Reports: Cholelithiasis, GERD Musculoskeletal History: Reports: Arthritis, Osteoarthritis Neurological History: Reports: Alzheimers Disease Psychiatric History: Reports: Alzheimers Disease, Dementia Other Oncologic History: chronic lymphocytic leukemia - Infectious Disease History Infectious Disease History: Reports: Chicken Pox, Measles, Mumps - Past Surgical History HEENT Surgical History: Reports: None, Cataract Surgery Other HEENT Surgeries/Procedures: bilateral GI Surgical History: Reports: None, Cholecystectomy, Colonoscopy, Hernia, Inguinal, Other (See Below) Other GI Surgeries/Procedures: colon surgery x 2 Other Neurological Surgeries/Procedures: spinal implant Musculoskeletal Surgical History: Reports: Other (See Below) Other Musculoskeletal Surgeries/Procedures:: hip surgery, current. Back pain, spinal implant Social & Family History - Family History Family Medical History: Noncontributory - Tobacco Use Smoking Status *Q: Former Smoker Used Tobacco, but Quit: Yes Month Tobacco Last Used: unknown Tobacco Use Comment: smoked briefly, quit many years ago Second Hand Smoke Exposure: No - Caffeine Use Caffeine Use: Reports: None - Alcohol Use Days Per Week of Alcohol Use: 0 Number of Drinks Per Day: 1 Total Drinks Per Week: 0 - Recreational Drug Use Recreational Drug Use: No ED ROS GENERAL - Review of Systems Review Of Systems: See Below Constitutional: Reports: Fever, Other (mildly ill, good eye contact, cooperative ) HEENT: Reports: No Symptoms Respiratory: Reports: Cough Cardiovascular: Reports: No Symptoms Endocrine: Reports: No Symptoms GI/Abdominal: Reports: No Symptoms : Reports: No Symptoms Musculoskeletal: Reports: No Symptoms Skin: Reports: No Symptoms Neurological: Reports: No Symptoms Psychiatric: Reports: No Symptoms Hematologic/Lymphatic: Reports: No Symptoms Immunologic: Reports: No Symptoms ED EXAM, GENERAL - Physical Exam Exam: See Below Exam Limited By: No Limitations General Appearance: Alert, WD/WN, No Apparent Distress Eye Exam: Bilateral Eye: Conjunctival Injection (eyes mattery, little swell, moderate clear d/c) Ears: Normal External Exam Ear Exam: Bilateral Ear: Auricle Normal Nose: Normal Inspection, Normal Mucosa, No Blood, Other (no swell, clear d/c) Throat/Mouth: Normal Inspection, Normal Lips, Normal Gums, Normal Oropharynx, Normal Voice, No Airway Compromise Head: Atraumatic, Normocephalic Neck: Normal Inspection, Supple, Non-Tender, Full Range of Motion Respiratory/Chest: No Respiratory Distress, Lungs Clear, Normal Breath Sounds, No Accessory Muscle Use, Chest Non-Tender, Other (good AE, no cough observed, no rales, no wheeze). No: Rhonchi, Wheezing Cardiovascular: Normal Peripheral Pulses, No Edema, No Gallop, No Rub, Other ( slight tachy, 2/6 LISSETTE at LSB) GI/Abdominal: Normal Bowel Sounds, Soft, Non-Tender, No Organomegaly, No Distention, No Mass Back Exam: Normal Inspection, Full Range of Motion, NT Extremities: Normal Inspection, Normal Range of Motion, Non-Tender, No Pedal Edema Neurological: Alert, Oriented, CN II-XII Intact, Normal Cognition, No Motor/ Sensory Deficits Psychiatric: Normal Mood, Other ( questions readily, talks complete sentences, rather flat affect with limited facial expression) Skin Exam: Warm, Dry, Intact, Normal Color, No Rash Lymphatic: No Adenopathy Course - Vital Signs Last Recorded V/S: Last Vital Signs Temp 37.6 C 06/20/17 21:24 Pulse 110 H 06/20/17 21:24 Resp 17 06/20/17 21:24 BP 142/66 H 06/20/17 21:24 Pulse Ox 96 06/20/17 21:24 - Orders/Labs/Meds Orders: Active Orders 24 hr Category Date Time Status Chest 2V [CR] Stat Exams 06/20/17 21:49 Taken UA W/MICROSCOPIC [URIN] Stat Lab 06/20/17 21:49 Ordered Labs: Laboratory Tests 06/20/17 06/20/17 06/20/17 Range/Units 22:00 22:00 22:00 WBC 24.8 H (4.5-12.0) X10-3/uL RBC 3.75 L (4.30-5.75) x10(6)uL Hgb 12.0 (11.5-15.5) g/dL Hct 34.4 (30.0-51.3) % MCV 91.6 (80-96) fL MCH 31.9 (27.7-33.6) pg MCHC 34.8 (32.2-35.4) g/dL RDW 13.8 (11.5-15.5) % Plt Count 272 (125-369) X10(3)uL MPV 7.6 (7.4-10.4) fL Add Manual Diff Yes Neutrophils % (Manual) 45 L (46-82) % Band Neutrophils % 5 (0-6) % Lymphocytes % (Manual) 46 H (13-37) % Monocytes % (Manual) 4 (4-12) % Sodium 137 (135-145) mmol/L Potassium 4.0 (3.5-5.3) mmol/L Chloride 102 (100-110) mmol/L Carbon Dioxide 25 (21-32) mmol/L BUN 18 (7-18) mg/dL Creatinine 1.0 (0.70-1.30) mg/dL Est Cr Clr Drug Dosing 50.08 mL/min Estimated GFR (MDRD) > 60 (>60) BUN/Creatinine Ratio 18.0 (9-20) Glucose 113 (80-116) mg/dL Calcium 8.3 L (8.6-10.2) mg/dL Total Bilirubin 0.5 (0.1-1.3) mg/dL AST 17 (5-25) IU/L ALT 20 (12-36) U/L Alkaline Phosphatase 67 (56-112) IU/L Troponin I 0.056 (<0.017-0.056) ng/mL Total Protein 6.2 (6.0-8.0) g/dL Albumin 2.9 (2.9-4.5) g/dL Globulin 3.3 g/dL Albumin/Globulin Ratio 0.9 Meds: Medications Discontinued Medications Generic Name Dose Route Start Last Admin Trade Name Freq PRN Reason Stop Dose Admin Oseltamivir Phosphate 75 mg 06/20/17 23:04 06/20/17 23:23 Tamiflu PO 06/20/17 23:05 75 mg ONETIME ONE Administration - Re-Assessments/Exams Free Text/Narrative Re-Assessment/Exam: 06/20/17 23:29 WBC 24k, however pt has CLL unable to provide u/a does look mildly ill altho not toxic will tx with Tamiflu, will tx as well who has "same symptoms" Departure - Departure Time of Disposition: 23:31 Disposition: Home, Self-Care 01 Condition: Good Clinical Impression: Influenza B - Discharge Information Prescriptions: Oseltamivir [Tamiflu] 75 mg PO BID #9 cap Instructions: Influenza, Adult Referrals: Helio Bowden MD [Primary Care Provider] - Forms: ED Department Discharge Additional Instructions: For influenza, take Tamiflu 75 mg 1 tab 2 times a day for 5 days. For pain and inflammation and fever, take acetaminophen 500 mg 2 tabs 4 times a day for 5 days, longer if needed. For pain and inflammation and fever, also take Aleve 1 tab 2 times a day for 5 days. Increase fluids without caffeine. See your doctor if you feel worse or are not improving in 5 days. May continue the azithromycin. Call your Physician or Return to Emergency Department if: * Your condition worsens in any way. * You develop fever greater than 100.4. * You have vomitting that does not stop with medications. * You have pain that is not controlled with medications. - My Orders Last 24 Hours: My Active Orders 06/20/17 21:49 Chest 2V [CR] Stat UA W/MICROSCOPIC [URIN] Stat - Assessment/Plan Last 24 Hours: My Active Orders 06/20/17 21:49 Chest 2V [CR] Stat UA W/MICROSCOPIC [URIN] Stat
[2017-06-20] MEDS: Oseltamivir 75 MG Cap PO ONE (23:23)
--- NOTE | 2017-06-21 11:16 | CR ---
INDICATION: Nonproductive cough and fever times two days. CHEST: PA and lateral views of the chest were obtained 06/20/2017. No comparison studies were available. The heart appeared slightly enlarged. The aorta is tortuous with calcification in the arch. Slightly heavy markings are noted in the mid to lower lung anders, and while a consolidating pneumonia or effusion was not identified, it is difficult to exclude minimal patchy bronchopneumonia or unusual interstitial pneumonia. This appearance may be on the basis of pulmonary fibrosis, however, and should be correlated clinically. Mild degenerative changes are noted in the mid to lower thoracic spine. A neurostimulating device is noted in place in the lower middle thoracic spine. IMPRESSION: 1. No definite acute process but difficult to exclude minimal patchy bronchopneumonia or interstitial pneumonia versus pulmonary fibrosis - correlate clinically. 2. ASHD with mild cardiomegaly. MTDD
== END 2017-06-20 23:42 | disposition home or self-care (01) ==
LOC: FB.ED 21:10
DX: J10.1 Influenza due to other identified influenza virus with other respiratory manifestations (principal); I10 Essential (primary) hypertension; Z87.891 Personal history of nicotine dependence; Z88.8 Allergy status to other drugs, medicaments and biological substances; Z79.899 Other long term (current) drug therapy
CPT/HCPCS: 36415; 71046; 80053; 84484; 85025; 87804; 99283; A9270-GY

== ENCOUNTER 2017-12-05 09:52 | Emergency (ER) | payer MEDICARE, OTHER ==
--- NOTE | 2017-12-05 11:11 | EDM.PDOC ---
ED HPI GENERAL MEDICAL PROBLEM - General Chief Complaint: General Stated Complaint: WEAKNESS Time Seen by Provider: 12/05/17 10:30 Source of Information: Reports: Patient, Family, Old Records History Limitations: Reports: No Limitations - History of Present Illness INITIAL COMMENTS - FREE TEXT/NARRATIVE: Denilson comes to [facility] ED by POV with issues of some truncal instability this am with leftward leaning. This occurs with sitting and standing. He is able to walk with a cane, but needed a walker this am. There is no reported facial asymmetry, dysarthria, loss of vision, chest pain or SOB. Spouse also noted bilateral swelling of both feet this am. There is a PMH of Mike Dz and CLL. His GCS is 14. chronic back pain Pain Score (Numeric/FACES): 5 - Related Data Allergies Allergy/AdvReac Type Severity Reaction Status Date / Time fentanyl Allergy Rash Verified 12/05/17 10:19 Home Meds: Home Meds Acetaminophen [Tylenol Extra Strength] 1,000 mg PO TID 10/24/16 [History] Donepezil [Aricept] 5 mg PO BEDTIME 10/24/16 [History] Enalapril [Vasotec] 5 mg PO DAILY 10/24/16 [History] Gabapentin 300 mg PO BID 10/24/16 [History] Sennosides/Docusate Sodium [Senokot-S Tablet] 1 each PO BID 10/24/16 [History] Tamsulosin [Flomax] 0.4 mg PO DAILY #30 cap.er 11/07/16 [Rx] Calcium Carbonate [Tums] 500 mg PO Q4H PRN 12/05/17 [History] Cholecalciferol (Vitamin D3) [Vitamin D3] 1,000 unit PO DAILY 12/05/17 [History] Cyanocobalamin (Vitamin B-12) [Vitamin B-12] 1,000 mcg PO DAILY 12/05/17 [ History] Dextran 70/Hypromellose [Artificial Tears] 1 each OP Q4H PRN 12/05/17 [History] Naproxen Sodium [Aleve] 220 mg PO DAILY 12/05/17 [History] Phenylephrine HCl [Suphedrine PE] 10 mg PO DAILY PRN 12/05/17 [History] Ranitidine HCl [Ranitidine] 150 mg PO BID 12/05/17 [History] Vitamin E 1,000 unit PO DAILY 12/05/17 [History] Past Medical History HEENT History: Reports: Cataract, Glaucoma, Impaired Vision Other HEENT History: Presbyopia, astigmatism, retinal disorder, hypermetropia, blepharitis Cardiovascular History: Reports: Hypertension Gastrointestinal History: Reports: Cholelithiasis, GERD Musculoskeletal History: Reports: Arthritis, Back Pain, Chronic, Osteoarthritis Neurological History: Reports: Alzheimers Disease Psychiatric History: Reports: Alzheimers Disease, Dementia Other Oncologic History: chronic lymphocytic leukemia - Infectious Disease History Infectious Disease History: Reports: Chicken Pox, Measles, Mumps - Past Surgical History HEENT Surgical History: Reports: None, Cataract Surgery Other HEENT Surgeries/Procedures: bilateral GI Surgical History: Reports: None, Cholecystectomy, Colonoscopy, Hernia, Inguinal, Other (See Below) Other GI Surgeries/Procedures: colon surgery x 2 Other Neurological Surgeries/Procedures: spinal implant Musculoskeletal Surgical History: Reports: Other (See Below) Other Musculoskeletal Surgeries/Procedures:: hip surgery, current. Back pain, spinal implant Social & Family History - Family History Family Medical History: Noncontributory - Tobacco Use Smoking Status *Q: Former Smoker Used Tobacco, but Quit: Yes Month/Year Tobacco Last Used: 480 - Caffeine Use Caffeine Use: Reports: None - Recreational Drug Use Recreational Drug Use: No ED ROS GENERAL - Review of Systems Review Of Systems: See Below Constitutional: Reports: Weakness (chronic) HEENT: Reports: No Symptoms Respiratory: Reports: No Symptoms Cardiovascular: Reports: Edema Endocrine: Reports: Fatigue GI/Abdominal: Reports: No Symptoms : Reports: Other (on Flomax for voiding problems) Musculoskeletal: Reports: Back Pain (chronic, has nerve stimulator implanted and receives epidural injections periodically), Joint Pain (DJD) Skin: Reports: No Symptoms Neurological: Reports: Confusion, Pre-Existing Deficit, Difficulty Walking, Weakness Psychiatric: Reports: Confusion Hematologic/Lymphatic: Reports: No Symptoms Immunologic: Reports: No Symptoms ED EXAM, GENERAL - Physical Exam Exam: See Below Exam Limited By: Other (Alzheimers Dz: disorientated to time, date, and circumstances of ED visit) General Appearance: Alert, WD/WN, No Apparent Distress, Lethargic Eye Exam: Bilateral Eye: EOMI, Normal Inspection, PERRL Ears: Normal External Exam, Hearing Grossly Normal Nose: Normal Inspection Throat/Mouth: Normal Lips, Normal Oropharynx, No Airway Compromise Head: Normocephalic Neck: Normal Inspection, Supple, Non-Tender Respiratory/Chest: No Respiratory Distress, Lungs Clear, Normal Breath Sounds, No Accessory Muscle Use, Chest Non-Tender Cardiovascular: Regular Rate, Rhythm, No Gallop, No JVD, No Murmur GI/Abdominal: Normal Bowel Sounds, Soft, Non-Tender, No Organomegaly, No Distention, No Mass (Male) Exam: No Hernia Back Exam: Normal Inspection Extremities: Normal Inspection, Other (bialteral pedal edema) Neurological: Alert, CN II-XII Intact, Inattentive, Disoriented, Slow to Respond , Memory Loss Recent Events, Abnormal Gait, Abnormal Reflexes Psychiatric: Flat Affect Skin Exam: Warm, Dry, Intact, No Rash, Pallor Lymphatic: No Adenopathy Course - Vital Signs Text/Narrative:: Mr Bermudez remained stable at the [facility] ED, ate a meal, and did complete studies including a noncontrast Head CT: extensive microvascular changes of white matter, no CVA, no NPH, no space occupyingl lesion, no bleeding. His screening lab work including CBC noted static WBC elevation consistent with CLL ; the BNP was mildly elevated 553, doubt CHF at this time; d-dimer .34; Troponin <0.017; The chest x ray was unchanged from 08/06/17. His residual urine volume 195 ml on bladder scan. He will wear BK PREETHI hose for dependent edema. He will be discharged home with follow up with PCP. Last Recorded V/S: Last Vital Signs Temp 36.8 C 12/05/17 09:52 Pulse 102 H 12/05/17 09:52 Resp 18 12/05/17 09:52 BP 115/57 L 12/05/17 09:52 Pulse Ox 98 12/05/17 09:52 - Orders/Labs/Meds Orders: Active Orders 24 hr Category Date Time Status EKG Documentation Completion [RC] ASDIRECTED Care 12/05/17 10:54 Active Chest 1V Frontal [CR] Stat Exams 12/05/17 10:53 Taken Head wo Cont [CT] Urgent Exams 12/05/17 11:02 Taken URINALYSIS W/MICROSCOPIC [UA W/MICROSCOPIC] [URIN] Stat Lab 12/05/17 10:56 Ordered EKG 12 Lead [EK] Routine Ther 12/05/17 10:53 Ordered Labs: Laboratory Tests 12/05/17 12/05/17 12/05/17 Range/Units 10:56 11:05 11:05 WBC 23.4 H (4.5-12.0) X10-3/uL RBC 4.36 (4.30-5.75) x10(6)uL Hgb 13.8 (11.5-15.5) g/dL Hct 40.5 (30.0-51.3) % MCV 93.0 (80-96) fL MCH 31.7 (27.7-33.6) pg MCHC 34.1 (32.2-35.4) g/dL RDW 13.3 (11.5-15.5) % Plt Count 389 H (125-369) X10(3)uL MPV 7.1 L (7.4-10.4) fL Add Manual Diff Yes Neutrophils % (Manual) 46 (46-82) % Lymphocytes % (Manual) 51 H (13-37) % Monocytes % (Manual) 3 L (4-12) % D-Dimer, Quantitative (0.0-0.59) mg/LFEU Sodium 132 L (135-145) mmol/L Potassium 3.8 (3.5-5.3) mmol/L Chloride 98 L (100-110) mmol/L Carbon Dioxide 30 (21-32) mmol/L BUN 19 H (7-18) mg/dL Creatinine 0.9 (0.70-1.30) mg/dL Est Cr Clr Drug Dosing 53.83 mL/min Estimated GFR (MDRD) > 60 (>60) BUN/Creatinine Ratio 21.1 H (9-20) Glucose 105 (80-116) mg/dL Calcium 9.2 (8.6-10.2) mg/dL Total Bilirubin 0.9 (0.1-1.3) mg/dL AST 20 D (5-25) IU/L ALT 8 L D (12-36) U/L Alkaline Phosphatase 88 (56-112) IU/L Troponin I (<0.017-0.056) ng/mL NT-Pro-B Natriuret Pep (<=450) pg/mL Total Protein 7.3 (6.0-8.0) g/dL Albumin 3.5 (2.9-4.5) g/dL Globulin 3.8 g/dL Albumin/Globulin Ratio 0.9 Urine Color Yellow (YELLOW) Urine Appearance Clear (CLEAR) Urine pH 6.0 (5.0-6.5) Ur Specific Crawford 1.015 (1.010-1.025) Urine Protein 30 H (NEGATIVE) mg/dL Urine Glucose (UA) Normal (NEGATIVE) mg/dL Urine Ketones Negative (NEGATIVE) mg/dL Urine Occult Blood Negative (NEGATIVE) Urine Nitrite Negative (NEGATIVE) Urine Bilirubin Negative (NEGATIVE) Urine Urobilinogen Normal (NEGATIVE) mg/dL Ur Leukocyte Esterase Negative (NEGATIVE) Urine WBC 0-5 (0) Ur Squamous Epith Cells Occasional (NS,R,O) Urine Bacteria Few H (NS) 12/05/17 12/05/17 Range/Units 11:05 11:05 WBC (4.5-12.0) X10-3/uL RBC (4.30-5.75) x10(6)uL Hgb (11.5-15.5) g/dL Hct (30.0-51.3) % MCV (80-96) fL MCH (27.7-33.6) pg MCHC (32.2-35.4) g/dL RDW (11.5-15.5) % Plt Count (125-369) X10(3)uL MPV (7.4-10.4) fL Add Manual Diff Neutrophils % (Manual) (46-82) % Lymphocytes % (Manual) (13-37) % Monocytes % (Manual) (4-12) % D-Dimer, Quantitative 0.34 (0.0-0.59) mg/LFEU Sodium (135-145) mmol/L Potassium (3.5-5.3) mmol/L Chloride (100-110) mmol/L Carbon Dioxide (21-32) mmol/L BUN (7-18) mg/dL Creatinine (0.70-1.30) mg/dL Est Cr Clr Drug Dosing mL/min Estimated GFR (MDRD) (>60) BUN/Creatinine Ratio (9-20) Glucose (80-116) mg/dL Calcium (8.6-10.2) mg/dL Total Bilirubin (0.1-1.3) mg/dL AST (5-25) IU/L ALT (12-36) U/L Alkaline Phosphatase (56-112) IU/L Troponin I < 0.017 L (<0.017-0.056) ng/mL NT-Pro-B Natriuret Pep 553 H (<=450) pg/mL Total Protein (6.0-8.0) g/dL Albumin (2.9-4.5) g/dL Globulin g/dL Albumin/Globulin Ratio Urine Color (YELLOW) Urine Appearance (CLEAR) Urine pH (5.0-6.5) Ur Specific Crawford (1.010-1.025) Urine Protein (NEGATIVE) mg/dL Urine Glucose (UA) (NEGATIVE) mg/dL Urine Ketones (NEGATIVE) mg/dL Urine Occult Blood (NEGATIVE) Urine Nitrite (NEGATIVE) Urine Bilirubin (NEGATIVE) Urine Urobilinogen (NEGATIVE) mg/dL Ur Leukocyte Esterase (NEGATIVE) Urine WBC (0) Ur Squamous Epith Cells (NS,R,O) Urine Bacteria (NS) Departure - Departure Time of Disposition: 13:19 Disposition: Home, Self-Care 01 Condition: Fair Clinical Impression: Pedal edema - Discharge Information *PRESCRIPTION DRUG MONITORING PROGRAM REVIEWED*: Not Applicable *COPY OF PRESCRIPTION DRUG MONITORING REPORT IN PATIENT ALPHONSE: Not Applicable Referrals: Helio Bowden MD [Primary Care Provider] - Forms: ED Department Discharge - Problem List & Annotations (1) Alzheimer disease SNOMED Code(s): 12638036 Code(s): G30.9 - ALZHEIMER'S DISEASE, UNSPECIFIED; F02.80 - DEMENTIA IN OTH DISEASES CLASSD ELSWHR W/O BEHAVRL DISTURB Status: Acute Current Visit: Yes Annotation/Comment:: Recent truncal instability may represent progression of underlying dementia. There is extensive microvascular disease present on Head CT. No new meds dispensed. He will continue to be monitored by visiting nurse. He should ambulate with walker and wear a safety belt for ease of assistance. (2) Pedal edema SNOMED Code(s): 476745746 Code(s): R60.0 - LOCALIZED EDEMA Status: Acute Current Visit: Yes Annotation/Comment:: Denilson was fitted with PREETHI hose BK. - Problem List Review Problem List Initiated/Reviewed/Updated: Yes - My Orders Last 24 Hours: My Active Orders 12/05/17 10:53 Chest 1V Frontal [CR] Stat EKG 12 Lead [EK] Routine 12/05/17 10:54 EKG Documentation Completion [RC] ASDIRECTED 12/05/17 10:56 URINALYSIS W/MICROSCOPIC [UA W/MICROSCOPIC] [URIN] Stat 12/05/17 11:02 Head wo Cont [CT] Urgent - Assessment/Plan Last 24 Hours: My Active Orders 12/05/17 10:53 Chest 1V Frontal [CR] Stat EKG 12 Lead [EK] Routine 12/05/17 10:54 EKG Documentation Completion [RC] ASDIRECTED 12/05/17 10:56 URINALYSIS W/MICROSCOPIC [UA W/MICROSCOPIC] [URIN] Stat 12/05/17 11:02 Head wo Cont [CT] Urgent Plan: Follow up with PCP.
--- NOTE | 2017-12-05 14:44 | CT ---
INDICATION: Loss of truncal stability - leaning to left side this a.m. - history of memory impairment over the past two years - suspected Alzheimers - no history of injury. CT HEAD WITHOUT CONTRAST: Serial contiguous 2.5 and 5 mm sections were obtained through the brain without contrast, 12/05/2017 - no comparisons were available. Total exam DLP = 950.31 mGy-cm. No cranial abnormality is identified. Mastoid air cells were well-aerated. There is thickening of the lining of a few of the ethmoidal air cells, likely not of clinical significance. Calcifications are noted in the vertebral and internal carotid arteries. No shift of midline structures was seen. Ventricles and sulci are prominent, compatible with patients age and also relatively mild degree of central atrophy. White matter changes compatible with mild microvascular disease are noted, although other cause of leukoencephalopathy cannot be excluded. There also was noted an area of decreased density in the posterior portion of the anterior limb of the right internal capsule, which may represent a lacunar infarct or ischemia in that area. No bleeding site or hematoma was identified. No finding to strongly suggest an acute thrombotic CVA was noted. IMPRESSION: 1. No definite acute intracranial abnormality. 2. Cerebrovascular disease with microvascular disease type changes in the white matter of mild degree, although other cause of leukoencephalopathy cannot be excluded. 3. Central atrophy. 4. Minimal thickening of the linings of the ethmoidal air cells times two, most likely not of clinical significance. Report was given in person to Dr. Diaz immediately after the images became available on 12/05/2017. [facility]ITALS[facility]
--- NOTE | 2017-12-05 15:09 | CR ---
INDICATION: Pedal edema. CHEST: An AP portable upright view of the chest was obtained 12/05/2017 and compared with 06/20/2017. The heart appears normal in size and shape, allowing for the portable AP upright view. The aorta is tortuous with calcification minimally in the arch. Overlying EKG lead are noted. A definite active infiltrate or effusion was not identified. No evidence of CHF is seen. IMPRESSION: No acute process. MTDD
[2017-12-05 15:16] VITALS: BP 142/81
== END 2017-12-05 13:40 | disposition home or self-care (01) ==
LOC: FB.ED 09:52
DX: R60.0 Localized edema (principal); I10 Essential (primary) hypertension; G30.9 Alzheimer's disease, unspecified; F02.80 Dementia in other diseases classified elsewhere, unspecified severity, without behavioral disturbance, psychotic disturbance, mood disturbance, and anxiety; Z79.899 Other long term (current) drug therapy; Z88.8 Allergy status to other drugs, medicaments and biological substances; Z87.891 Personal history of nicotine dependence
CPT/HCPCS: 36415; 51798; 70450; 71045; 80053; 81001; 83880; 84484; 85025; 85379; 93005; 99284

== ENCOUNTER 2017-12-06 05:50 | Inpatient (IN) | payer MEDICARE, OTHER ==
--- NOTE | 2017-12-06 06:17 | EDM.PDOC ---
ED HPI GENERAL MEDICAL PROBLEM - General Chief Complaint: General Stated Complaint: FALL Time Seen by Provider: 12/06/17 06:10 Source of Information: Reports: Patient, Family, Old Records History Limitations: Reports: No Limitations - History of Present Illness INITIAL COMMENTS - FREE TEXT/NARRATIVE: Denilson returns to [facility] ED following 2 falls this early am when trying to exit the bed to use a urinal. EMS was able to get him back into bed the first time, but EMS returned a second time to place him onto a stretcher for transport to the hospital. Denilson denies pain, SOB, chest pain, complaining only of need to void. A post voiding bladder scan noted 119 ml residual. general Pain Score (Numeric/FACES): 3 - Related Data Allergies Allergy/AdvReac Type Severity Reaction Status Date / Time fentanyl Allergy Rash Verified 12/06/17 06:02 Home Meds: Home Meds Acetaminophen [Tylenol Extra Strength] 1,000 mg PO TID 10/24/16 [History] Donepezil [Aricept] 5 mg PO BEDTIME 10/24/16 [History] Enalapril [Vasotec] 5 mg PO DAILY 10/24/16 [History] Gabapentin 300 mg PO BID 10/24/16 [History] Sennosides/Docusate Sodium [Senokot-S Tablet] 1 each PO BID 10/24/16 [History] Tamsulosin [Flomax] 0.4 mg PO DAILY #30 cap.er 11/07/16 [Rx] Calcium Carbonate [Tums] 500 mg PO Q4H PRN 12/05/17 [History] Cholecalciferol (Vitamin D3) [Vitamin D3] 1,000 unit PO DAILY 12/05/17 [History] Cyanocobalamin (Vitamin B-12) [Vitamin B-12] 1,000 mcg PO DAILY 12/05/17 [ History] Dextran 70/Hypromellose [Artificial Tears] 1 each OP Q4H PRN 12/05/17 [History] Naproxen Sodium [Aleve] 220 mg PO DAILY 12/05/17 [History] Phenylephrine HCl [Suphedrine PE] 10 mg PO DAILY PRN 12/05/17 [History] Ranitidine HCl [Ranitidine] 150 mg PO BID 12/05/17 [History] Vitamin E 1,000 unit PO DAILY 12/05/17 [History] Past Medical History HEENT History: Reports: Cataract, Glaucoma, Impaired Vision Other HEENT History: Presbyopia, astigmatism, retinal disorder, hypermetropia, blepharitis Cardiovascular History: Reports: Hypertension Gastrointestinal History: Reports: Cholelithiasis, GERD Musculoskeletal History: Reports: Arthritis, Back Pain, Chronic, Osteoarthritis Neurological History: Reports: Alzheimers Disease Psychiatric History: Reports: Alzheimers Disease, Dementia Other Oncologic History: chronic lymphocytic leukemia - Infectious Disease History Infectious Disease History: Reports: Chicken Pox, Measles, Mumps - Past Surgical History HEENT Surgical History: Reports: None, Cataract Surgery Other HEENT Surgeries/Procedures: bilateral GI Surgical History: Reports: None, Cholecystectomy, Colonoscopy, Hernia, Inguinal, Other (See Below) Other GI Surgeries/Procedures: colon surgery x 2 Other Neurological Surgeries/Procedures: spinal implant Musculoskeletal Surgical History: Reports: Other (See Below) Other Musculoskeletal Surgeries/Procedures:: hip surgery, current. Back pain, spinal implant Social & Family History - Family History Family Medical History: Noncontributory - Caffeine Use Caffeine Use: Reports: None ED ROS GENERAL - Review of Systems Review Of Systems: See Below Constitutional: Reports: Malaise, Weakness HEENT: Reports: No Symptoms Respiratory: Reports: No Symptoms Cardiovascular: Reports: No Symptoms Endocrine: Reports: Fatigue GI/Abdominal: Reports: No Symptoms : Reports: Urinary Retention Musculoskeletal: Reports: Back Pain Skin: Reports: Other (dependent edema) Neurological: Reports: Confusion, Difficulty Walking, Weakness Psychiatric: Reports: Confusion Hematologic/Lymphatic: Reports: Other (CLL) Immunologic: Reports: No Symptoms ED EXAM, GENERAL - Physical Exam Exam: See Below Exam Limited By: Altered Mental Status General Appearance: Alert, WD/WN, Lethargic Eye Exam: Bilateral Eye: EOMI, Normal Inspection, PERRL Ears: Normal External Exam Nose: Normal Inspection Throat/Mouth: Normal Inspection, No Airway Compromise Head: Normocephalic Neck: Normal Inspection, Supple, Non-Tender Respiratory/Chest: No Respiratory Distress, Lungs Clear, Normal Breath Sounds, No Accessory Muscle Use, Chest Non-Tender Cardiovascular: Regular Rate, Rhythm, No Gallop, No JVD, Other (dependent edema) GI/Abdominal: Normal Bowel Sounds, Soft, Non-Tender, No Organomegaly, No Distention, No Mass (Male) Exam: Normal Inspection Rectal (Males) Exam: Deferred Back Exam: Normal Inspection Extremities: Pedal Edema, Pallor, Other (deconditioning) Neurological: Alert, CN II-XII Intact, Confused, Disoriented, Slow to Respond, Memory Loss Recent Events, Abnormal Gait Psychiatric: Flat Affect Skin Exam: Warm, Dry, Intact, Pallor Lymphatic: No Adenopathy Course - Vital Signs Text/Narrative:: Denilson has progressive dementia, impaired judgement and lack of insight, profound deconditioning, and would benefit from SNF w memory unit. He will be admitted to Observation and seen by hospitalist this am for disposition. Last Recorded V/S: Last Vital Signs Temp 36.6 C 12/06/17 05:50 Pulse 98 12/06/17 05:50 Resp 18 12/06/17 05:50 BP 134/61 12/06/17 05:50 Pulse Ox 97 12/06/17 05:50 Departure - Departure Time of Disposition: 06:31 Disposition: Refer to Observation Condition: Fair Clinical Impression: Pedal edema, Chronic lymphocytic leukemia, Urinary retention Alzheimer disease Qualifiers: Alzheimer's disease onset: unspecified onset Dementia behavioral disturbance: without behavioral disturbance Qualified Code(s): G30.9 - Alzheimer's disease, unspecified; F02.80 - Dementia in other diseases classified elsewhere without behavioral disturbance - Discharge Information *PRESCRIPTION DRUG MONITORING PROGRAM REVIEWED*: Not Applicable *COPY OF PRESCRIPTION DRUG MONITORING REPORT IN PATIENT ALPHONSE: Not Applicable Forms: ED Department Discharge - Problem List & Annotations (1) Alzheimer disease SNOMED Code(s): 49418546 Code(s): G30.9 - ALZHEIMER'S DISEASE, UNSPECIFIED; F02.80 - DEMENTIA IN OTH DISEASES CLASSD ELSWHR W/O BEHAVRL DISTURB Status: Acute Current Visit: Yes Annotation/Comment:: Recent truncal instability may represent progression of underlying dementia. There is extensive microvascular disease present on Head CT. No new meds dispensed. He will continue to be monitored by visiting nurse. He should ambulate with walker and wear a safety belt for ease of assistance. Qualifiers: Alzheimer's disease onset: unspecified onset Dementia behavioral disturbance: without behavioral disturbance Qualified Code(s): G30.9 - Alzheimer's disease, unspecified; F02.80 - Dementia in other diseases classified elsewhere without behavioral disturbance (2) Pedal edema SNOMED Code(s): 873498098 Code(s): R60.0 - LOCALIZED EDEMA Status: Acute Current Visit: Yes Annotation/Comment:: Denilson was fitted with PREETHI hose BK. (3) Chronic lymphocytic leukemia SNOMED Code(s): 42281121 Code(s): C91.90 - LYMPHOID LEUKEMIA, UNSPECIFIED NOT HAVING ACHIEVED REMISSION Status: Acute Current Visit: Yes (4) Urinary retention SNOMED Code(s): 617513143 Code(s): R33.9 - RETENTION OF URINE, UNSPECIFIED Status: Acute Current Visit: Yes - Problem List Review Problem List Initiated/Reviewed/Updated: Yes - Assessment/Plan Plan: Hospitalist to see this am regarding disposition.
--- NOTE | 2017-12-06 09:14 | PCM.HP ---
H&P History of Present Illness - General Date of Service: 12/06/17 Admit Problem/Dx: Admission Diagnosis/Problem Admission Diagnosis/Problem Edema of lower extremity - History of Present Illness Initial Comments - Free Text/Narative: Denilson is an 87-year-old male was admitted because of frequent falls. He was in the ER early for the same reason in the evening and at home while trying to navigate from bed to bathroom ,he fell twice. He did not have any significant injury but the was concerned enough to bring him to the ER. She states that he's had significant physical and mental decline in the last couple weeks with weight loss, instability of gait and low blood pressure. He has a history of HTN,stable, chronic back pain, stable, CLL stable, as Alzheimer's dementia, which is worse general Pain Score (Numeric/FACES): 3 - Related Data Allergies/Adverse Reactions: Allergies Allergy/AdvReac Type Severity Reaction Status Date / Time fentanyl Allergy Rash Verified 12/06/17 06:02 Home Medications: Home Meds Acetaminophen [Tylenol Extra Strength] 1,000 mg PO TID 10/24/16 [History] Donepezil [Aricept] 5 mg PO BEDTIME 10/24/16 [History] Enalapril [Vasotec] 5 mg PO DAILY 10/24/16 [History] Gabapentin 300 mg PO BID 10/24/16 [History] Sennosides/Docusate Sodium [Senokot-S Tablet] 1 each PO BID 10/24/16 [History] Tamsulosin [Flomax] 0.4 mg PO DAILY #30 cap.er 11/07/16 [Rx] Calcium Carbonate [Tums] 500 mg PO Q4H PRN 12/05/17 [History] Cholecalciferol (Vitamin D3) [Vitamin D3] 1,000 unit PO DAILY 12/05/17 [History] Cyanocobalamin (Vitamin B-12) [Vitamin B-12] 1,000 mcg PO DAILY 12/05/17 [ History] Dextran 70/Hypromellose [Artificial Tears] 1 each OP Q4H PRN 12/05/17 [History] Naproxen Sodium [Aleve] 220 mg PO DAILY 12/05/17 [History] Phenylephrine HCl [Suphedrine PE] 10 mg PO DAILY PRN 12/05/17 [History] Ranitidine HCl [Ranitidine] 150 mg PO BID 12/05/17 [History] Vitamin E 1,000 unit PO DAILY 12/05/17 [History] Past Medical History HEENT History: Reports: Cataract, Glaucoma, Impaired Vision Other HEENT History: Presbyopia, astigmatism, retinal disorder, hypermetropia, blepharitis Cardiovascular History: Reports: Hypertension Respiratory History: Reports: SOB Gastrointestinal History: Reports: Cholelithiasis, GERD Genitourinary History: Reports: Retention, Urinary Musculoskeletal History: Reports: Arthritis, Back Pain, Chronic, Osteoarthritis Neurological History: Reports: Alzheimers Disease Psychiatric History: Reports: Alzheimers Disease, Dementia Hematologic History: Reports: Other (See Below) Other Hematologic History: CLL Other Oncologic History: chronic lymphocytic leukemia - Infectious Disease History Infectious Disease History: Reports: Chicken Pox, Measles, Mumps - Past Surgical History HEENT Surgical History: Reports: None, Cataract Surgery Other HEENT Surgeries/Procedures: bilateral GI Surgical History: Reports: None, Cholecystectomy, Colonoscopy, Hernia, Inguinal, Other (See Below) Other GI Surgeries/Procedures: colon surgery x 2 Other Neurological Surgeries/Procedures: spinal implant Musculoskeletal Surgical History: Reports: Other (See Below) Other Musculoskeletal Surgeries/Procedures:: hip surgery, current. Back pain, spinal implant Social & Family History - Family History Family Medical History: Noncontributory - Tobacco Use Smoking Status *Q: Never Smoker Used Tobacco, but Quit: Yes Month/Year Tobacco Last Used: 1989 Second Hand Smoke Exposure: No - Caffeine Use Caffeine Use: Reports: Soda Caffeine Use Comment: 1 diet coke a day - Recreational Drug Use Recreational Drug Use: No H&P Review of Systems - Review of Systems: Review Of Systems: ROS reveals no pertinent complaints other than HPI. Exam - Exam Exam: See Below - Vital Signs Vital Signs: Last Vital Signs Temp 97.7 F 12/06/17 06:57 Pulse 96 12/06/17 06:57 Resp 16 12/06/17 06:57 BP 116/60 12/06/17 06:57 Pulse Ox 98 12/06/17 06:57 Weight: 72.167 kg - Exam General: Alert, Oriented, 4 HEENT: PERRLA, Hearing Intact, Mucosa Moist & [place], Nares Patent, Normal Nasal Septum, Posterior Pharynx Clear, Conjunctiva Clear, EOMI, EACs Clear, TMs Clear Neck: Supple, Trachea Midline, 2 Lungs: Clear to Auscultation, Normal Respiratory Effort Cardiovascular: Regular Rate, Regular Rhythm GI/Abdominal Exam: Normal Bowel Sounds, Soft, Non-Tender, No Organomegaly, No Distention, No Abnormal Bruit, No Mass, Pelvis Stable (Male) Exam: Deferred Rectal (Males) Exam: Deferred Back Exam: Normal Inspection, Full Range of Motion, NT Extremities: Normal Inspection, Normal Range of Motion, Non-Tender, Normal Capillary Refill, Pedal Edema Skin: Warm, Dry, Intact Neurological: Cranial Nerves Intact, Reflexes Equal Bilateral Neuro Extensive - Mental Status: Alert, Oriented x3, Normal Mood/Affect, Normal Cognition Neuro Extensive - Motor, Sensory, Reflexes: CN II-XII Intact, Normal Gait, Normal Reflexes Psychiatric: Alert, Normal Affect, Normal Mood - Patient Data Lab Results Last 24 hrs: Laboratory Results - last 24 hr 12/06/17 Range/Units 06:25 Urine Color Yellow (YELLOW) Urine Appearance Slightly cloudy (CLEAR) Urine pH 5.0 (5.0-6.5) Ur Specific [place] 1.025 (1.010-1.025) Urine Protein 100 H (NEGATIVE) mg/dL Urine Glucose (UA) Normal (NEGATIVE) mg/dL Urine Ketones Negative (NEGATIVE) mg/dL Urine Occult Blood Negative (NEGATIVE) Urine Nitrite Negative (NEGATIVE) Urine Bilirubin Small H (NEGATIVE) Urine Urobilinogen 1 H (NEGATIVE) mg/dL Ur Leukocyte Esterase Negative (NEGATIVE) Urine WBC 0-5 (0) Ur Squamous Epith Cells Few H (NS,R,O) Urine Bacteria Moderate H (NS) - Problem List (1) Alzheimer disease SNOMED Code(s): 64264164 ICD Code: G30.9 - ALZHEIMER'S DISEASE, UNSPECIFIED; F02.80 - DEMENTIA IN OTH DISEASES CLASSD ELSWHR W/O BEHAVRL DISTURB Status: Acute Current Visit: Yes Qualifiers: Alzheimer's disease onset: unspecified onset Dementia behavioral disturbance: without behavioral disturbance Qualified Code(s): G30.9 - Alzheimer's disease, unspecified; F02.80 - Dementia in other diseases classified elsewhere without behavioral disturbance (2) HTN (hypertension) SNOMED Code(s): 24806207 ICD Code: I10 - ESSENTIAL (PRIMARY) HYPERTENSION Status: Acute Current Visit: Yes Qualifiers: Hypertension type: essential hypertension Qualified Code(s): I10 - Essential (primary) hypertension (3) Physical deconditioning SNOMED Code(s): 91559043451250 ICD Code: R53.81 - OTHER MALAISE Status: Acute Current Visit: Yes (4) Chronic lymphocytic leukemia SNOMED Code(s): 45380787 ICD Code: C91.90 - LYMPHOID LEUKEMIA, UNSPECIFIED NOT HAVING ACHIEVED REMISSION Status: Chronic Current Visit: Yes (5) Pedal edema SNOMED Code(s): 060982689 ICD Code: R60.0 - LOCALIZED EDEMA Status: Chronic Current Visit: Yes (6) Chronic back pain SNOMED Code(s): 537478000 ICD Code: M54.9 - DORSALGIA, UNSPECIFIED; G89.29 - OTHER CHRONIC PAIN Status: Acute Current Visit: Yes Qualifiers: Back pain location: low back pain Sciatica presence: without sciatica Problem List Initiated/Reviewed/Updated: Yes Orders Last 24hrs: Active Orders 24 hr Category Date Time Status Bladder Scan [RC] ASDIRECTED Care 12/06/17 06:20 Active UA W/MICROSCOPIC [URIN] Stat Lab 12/06/17 06:25 Ordered Assessment/Plan Comment:: Admit patient, consult physical and occupational therapy. This source of his weakness and frequent falls is unclear. I have recommended reducing the dose of gabapentin to 300 mg twice a day ,and discontinuing his antihypertensives altogether.
[2017-12-06] MEDS ORDERED: Calcium Carbonate 500 MG Tab.Chew PO PRN ×2 (09:18→10:51)
[2017-12-06] MEDS ORDERED: Polyvinyl Alcohol 1.4% Ophth Soln 15 ML Bottle EYEBOTH PRN (10:00)
[2017-12-06] MEDS: Famotidine 20 MG Tab PO SCH ×2 (10:26→20:02)
[2017-12-06] MEDS: Vitamin E (dl-alpha-tocopherol acetate) 400 Unit Cap PO SCH (10:26)
[2017-12-06] MEDS: Acetaminophen 500 MG Tab PO SCH ×3 (10:26→20:03)
[2017-12-06] MEDS: Enoxaparin 30 MG/0.3 ML Syringe SUBCUT SCH (10:26)
[2017-12-06] MEDS: Tamsulosin 0.4 MG Cap.ER PO SCH (10:26)
[2017-12-06] MEDS: Cholecalciferol (Vitamin D3) 1,000 Unit Tab PO SCH (10:27)
[2017-12-06] MEDS: Gabapentin 300 MG Cap PO SCH (20:02)
[2017-12-06] MEDS: Donepezil 5 MG Tab PO SCH (20:02)
[2017-12-07] MEDS: Acetaminophen 500 MG Tab PO SCH ×3 (08:39→20:05)
[2017-12-07] MEDS: Tamsulosin 0.4 MG Cap.ER PO SCH (08:39)
[2017-12-07] MEDS: Famotidine 20 MG Tab PO SCH ×2 (08:39→20:04)
[2017-12-07] MEDS: Enoxaparin 30 MG/0.3 ML Syringe SUBCUT SCH (08:40)
[2017-12-07] MEDS: Vitamin E (dl-alpha-tocopherol acetate) 400 Unit Cap PO SCH (08:40)
[2017-12-07] MEDS: Cholecalciferol (Vitamin D3) 1,000 Unit Tab PO SCH (08:40)
--- NOTE | 2017-12-07 09:51 | PCM.PN ---
- General Info Date of Service: 12/07/17 Subjective Update: They'll complains of mild constipation. Denies any pain. No new symptoms overnight. The leg swelling has improved. Functional Status: Reports: Pain Controlled, Tolerating Diet - Review of Systems General: Reports: No Symptoms HEENT: Reports: No Symptoms Cardiovascular: Reports: No Symptoms Genitourinary: Reports: No Symptoms - Patient Data Vitals - Most Recent: Last Vital Signs Temp 97.8 F 12/07/17 04:00 Pulse 86 12/07/17 04:00 Resp 17 12/07/17 04:00 BP 111/64 12/07/17 04:00 Pulse Ox 94 L 12/07/17 04:00 Weight - Most Recent: 73.573 kg I&O - Last 24 Hours: Intake & Output 12/06/17 12/07/17 12/07/17 22:59 06:59 14:59 Output Total 400 Balance -400 Lab Results Last 24 Hours: Laboratory Results - last 24 hr 12/07/17 12/07/17 12/07/17 Range/Units 06:20 06:20 06:20 WBC 21.6 H (4.5-12.0) X10-3/uL RBC 3.78 L (4.30-5.75) x10(6)uL Hgb 12.3 (11.5-15.5) g/dL Hct 35.0 (30.0-51.3) % MCV 92.6 (80-96) fL MCH 32.6 (27.7-33.6) pg MCHC 35.2 (32.2-35.4) g/dL RDW 13.1 (11.5-15.5) % Plt Count 330 (125-369) X10(3)uL MPV 7.7 (7.4-10.4) fL Add Manual Diff Yes Neutrophils % (Manual) 43 L (46-82) % Band Neutrophils % 1 (0-6) % Lymphocytes % (Manual) 51 H (13-37) % Monocytes % (Manual) 3 L (4-12) % Eosinophils % (Manual) 2 (0-5) % Polychromasia Sodium 137 (135-145) mmol/L Potassium 3.7 (3.5-5.3) mmol/L Chloride 104 D (100-110) mmol/L Carbon Dioxide 27 (21-32) mmol/L BUN 18 (7-18) mg/dL Creatinine 0.9 (0.70-1.30) mg/dL Est Cr Clr Drug Dosing 52.02 mL/min Estimated GFR (MDRD) > 60 (>60) BUN/Creatinine Ratio 20.0 (9-20) Glucose 91 (80-116) mg/dL Calcium 8.3 L (8.6-10.2) mg/dL Phosphorus 2.9 (2.6-4.6) mg/dL Magnesium 1.8 (1.8-2.5) mg/dL NT-Pro-B Natriuret Pep 812 H (<=450) pg/mL Med Orders - Current: Current Medications Acetaminophen (Tylenol Extra Strength) 1,000 mg PO TID [facility] Last Admin: 12/07/17 08:39 Dose: 1,000 mg Artificial Tears (Liquitears 1.4% Ophth Soln) 0 ml EYEBOTH Q4H PRN PRN Reason: DRY EYES Calcium Carbonate/Glycine (Tums) 500 mg PO Q4H PRN PRN Reason: Heartburn Cholecalciferol (Vitamin D3) 1,000 units PO DAILY [facility] Last Admin: 12/07/17 08:40 Dose: 1,000 units Donepezil HCl (Aricept) 5 mg PO BEDTIME [facility] Last Admin: 12/06/17 20:02 Dose: 5 mg Enoxaparin Sodium (Lovenox) 30 mg SUBCUT Q24H [facility] Last Admin: 12/07/17 08:40 Dose: 30 mg Famotidine (Pepcid) 20 mg PO BID [facility] Last Admin: 12/07/17 08:39 Dose: 20 mg Gabapentin (Neurontin) 300 mg PO BEDTIME [facility] Last Admin: 12/06/17 20:02 Dose: 300 mg Naproxen (Naproxen Sodium) 220 mg PO DAILY [facility] Last Admin: 12/07/17 08:39 Dose: 220 mg Senna/Docusate Sodium (Senna Plus) 1 tab PO BID [facility] Last Admin: 12/07/17 08:39 Dose: 1 tab Tamsulosin HCl (Flomax) 0.4 mg PO DAILY [facility] Last Admin: 12/07/17 08:39 Dose: 0.4 mg Vitamin E (Vitamin E) 800 units PO DAILY [facility] Last Admin: 12/07/17 08:40 Dose: 800 units Discontinued Medications Calcium Carbonate/Glycine (Tums) 500 mg PO Q4H PRN PRN Reason: Heartburn - Exam Quality Assessment: No: Supplemental Oxygen General: Alert, Oriented HEENT: Pupils Equal Lungs: Clear to Auscultation Cardiovascular: Regular Rate GI/Abdominal Exam: Non-Tender - Problem List & Annotations (1) Alzheimer disease SNOMED Code(s): 68583441 Code(s): G30.9 - ALZHEIMER'S DISEASE, UNSPECIFIED; F02.80 - DEMENTIA IN OTH DISEASES CLASSD ELSWHR W/O BEHAVRL DISTURB Status: Acute Current Visit: Yes Qualifiers: Alzheimer's disease onset: unspecified onset Dementia behavioral disturbance: without behavioral disturbance Qualified Code(s): G30.9 - Alzheimer's disease, unspecified; F02.80 - Dementia in other diseases classified elsewhere without behavioral disturbance (2) HTN (hypertension) SNOMED Code(s): 39064386 Code(s): I10 - ESSENTIAL (PRIMARY) HYPERTENSION Status: Acute Current Visit: Yes Qualifiers: Hypertension type: essential hypertension Qualified Code(s): I10 - Essential (primary) hypertension (3) Physical deconditioning SNOMED Code(s): 14014500271721 Code(s): R53.81 - OTHER MALAISE Status: Acute Current Visit: Yes (4) Chronic lymphocytic leukemia SNOMED Code(s): 61935663 Code(s): C91.90 - LYMPHOID LEUKEMIA, UNSPECIFIED NOT HAVING ACHIEVED REMISSION Status: Chronic Current Visit: Yes (5) Pedal edema SNOMED Code(s): 303738042 Code(s): R60.0 - LOCALIZED EDEMA Status: Chronic Current Visit: Yes (6) Chronic back pain SNOMED Code(s): 069883801 Code(s): M54.9 - DORSALGIA, UNSPECIFIED; G89.29 - OTHER CHRONIC PAIN Status : Acute Current Visit: Yes Qualifiers: Back pain location: low back pain Sciatica presence: without sciatica - Problem List Review Problem List Initiated/Reviewed/Updated: Yes - My Orders Last 24 Hours: My Active Orders 12/06/17 09:16 Patient Status [ADT] Routine Height and Weight [RC] 06 Oxygen Therapy [RC] PRN Up With Assistance [RC] ,13,17,21 VTE/DVT Education [RC] Per Unit Routine Vital Signs [RC] 00,04,08,12,16,20 OT Evaluation and Treatment [CONS] Routine PT Evaluation and Treatment [CONS] Routine Resuscitation Status Routine 12/06/17 09:17 Intake and Output [RC] QSHIFT 12/06/17 09:30 Enoxaparin [Lovenox] 30 mg SUBCUT Q24H 12/06/17 10:00 Acetaminophen [Tylenol Extra Strength] 1,000 mg PO TID Cholecalciferol (Vitamin D3) [Vitamin D3] 1,000 units PO DAILY Docusate Sodium/Sennosides [Senna Plus] 1 tab PO BID Famotidine [Pepcid] 20 mg PO BID Naproxen Sodium 220 mg PO DAILY Polyvinyl Alcohol [LiquiTears 1.4% Ophth Soln] 0 ml EYEBOTH Q4H PRN Tamsulosin [Flomax] 0.4 mg PO DAILY Vitamin E (dl, acetate) [Vitamin E] 800 units PO DAILY 12/06/17 10:51 Calcium Carbonate [Tums] 500 mg PO Q4H PRN 12/06/17 14:46 PREETHI Hose [Antiembolic Hose] [OM.PC] Routine 12/06/17 21:00 Donepezil [Aricept] 5 mg PO BEDTIME Gabapentin [Neurontin] 300 mg PO BEDTIME - Plan Plan:: Edema has improved. Pain is better.Continue OT today. Discuss correction plan with family
[2017-12-07] MEDS: Gabapentin 300 MG Cap PO SCH (20:04)
[2017-12-07] MEDS: Donepezil 5 MG Tab PO SCH (20:04)
[2017-12-08] MEDS: Vitamin E (dl-alpha-tocopherol acetate) 400 Unit Cap PO SCH (09:09)
[2017-12-08] MEDS: Famotidine 20 MG Tab PO SCH (09:09)
[2017-12-08] MEDS: Acetaminophen 500 MG Tab PO SCH ×2 (09:09→13:44)
[2017-12-08] MEDS: Enoxaparin 30 MG/0.3 ML Syringe SUBCUT SCH (09:10)
[2017-12-08] MEDS: Cholecalciferol (Vitamin D3) 1,000 Unit Tab PO SCH (09:10)
[2017-12-08] MEDS: Tamsulosin 0.4 MG Cap.ER PO SCH (09:10)
--- NOTE | 2017-12-08 09:38 | PCM.PN ---
- General Info Date of Service: 12/08/17 Admission Dx/Problem (Free Text): Agent without complaints. No chest pain, fevers chills shortness of breath or leg swelling. - Patient Data Vitals - Most Recent: Last Vital Signs Temp 97.5 F 12/08/17 07:40 Pulse 83 12/08/17 07:40 Resp 18 12/08/17 07:40 BP 111/69 12/08/17 07:40 Pulse Ox 96 12/08/17 09:00 Weight - Most Recent: 159 lb 3.2 oz I&O - Last 24 Hours: Intake & Output 12/07/17 12/08/17 12/08/17 22:59 06:59 14:59 Intake Total 800 Output Total 600 520 Balance 200 -520 Lab Results Last 24 Hours: Laboratory Results - last 24 hr 12/08/17 12/08/17 12/08/17 Range/Units 06:20 06:20 06:20 WBC 22.1 H (4.5-12.0) X10-3/uL RBC 3.89 L (4.30-5.75) x10(6)uL Hgb 12.5 (11.5-15.5) g/dL Hct 36.4 (30.0-51.3) % MCV 93.5 (80-96) fL MCH 32.1 (27.7-33.6) pg MCHC 34.3 (32.2-35.4) g/dL RDW 13.4 (11.5-15.5) % Plt Count 328 (125-369) X10(3)uL MPV 7.5 (7.4-10.4) fL Add Manual Diff Yes Neutrophils % (Manual) 41 L (46-82) % Lymphocytes % (Manual) 54 H (13-37) % Monocytes % (Manual) 5 (4-12) % Polychromasia Sodium 139 (135-145) mmol/L Potassium 3.8 (3.5-5.3) mmol/L Chloride 105 (100-110) mmol/L Carbon Dioxide 27 (21-32) mmol/L BUN 16 (7-18) mg/dL Creatinine 0.8 (0.70-1.30) mg/dL Est Cr Clr Drug Dosing 58.53 mL/min Estimated GFR (MDRD) > 60 (>60) BUN/Creatinine Ratio 20.0 (9-20) Glucose 90 (80-116) mg/dL Calcium 8.4 L (8.6-10.2) mg/dL NT-Pro-B Natriuret Pep 832 H (<=450) pg/mL Med Orders - Current: Current Medications Acetaminophen (Tylenol Extra Strength) 1,000 mg PO TID [facility] Last Admin: 12/08/17 09:09 Dose: 1,000 mg Artificial Tears (Liquitears 1.4% Ophth Soln) 0 ml EYEBOTH Q4H PRN PRN Reason: DRY EYES Calcium Carbonate/Glycine (Tums) 500 mg PO Q4H PRN PRN Reason: Heartburn Cholecalciferol (Vitamin D3) 1,000 units PO DAILY [facility] Last Admin: 12/08/17 09:10 Dose: 1,000 units Donepezil HCl (Aricept) 5 mg PO BEDTIME [facility] Last Admin: 12/07/17 20:04 Dose: 5 mg Enoxaparin Sodium (Lovenox) 30 mg SUBCUT Q24H [facility] Last Admin: 12/08/17 09:10 Dose: 30 mg Famotidine (Pepcid) 20 mg PO BID [facility] Last Admin: 12/08/17 09:09 Dose: 20 mg Gabapentin (Neurontin) 300 mg PO BEDTIME [facility] Last Admin: 12/07/17 20:04 Dose: 300 mg Naproxen (Naproxen Sodium) 220 mg PO DAILY [facility] Last Admin: 12/08/17 09:09 Dose: 220 mg Senna/Docusate Sodium (Senna Plus) 1 tab PO BID [facility] Last Admin: 12/08/17 09:10 Dose: 1 tab Tamsulosin HCl (Flomax) 0.4 mg PO DAILY [facility] Last Admin: 12/08/17 09:10 Dose: 0.4 mg Vitamin E (Vitamin E) 800 units PO DAILY [facility] Last Admin: 12/08/17 09:09 Dose: 800 units Discontinued Medications Calcium Carbonate/Glycine (Tums) 500 mg PO Q4H PRN PRN Reason: Heartburn - Exam General: Alert, Oriented Lungs: Clear to Auscultation, Rub Cardiovascular: Regular Rate, Regular Rhythm, No Murmurs Extremities: No Pedal Edema - Problem List & Annotations (1) Physical deconditioning SNOMED Code(s): 71219029155100 Code(s): R53.81 - OTHER MALAISE Status: Acute Current Visit: Yes (2) Pedal edema SNOMED Code(s): 781581296 Code(s): R60.0 - LOCALIZED EDEMA Status: Chronic Current Visit: Yes - Problem List Review Problem List Initiated/Reviewed/Updated: Yes - Plan Plan:: Edema has improved. Pain is better. Discharged today on home health.
--- NOTE | 2017-12-08 09:43 | PCM.DCSUM1 ---
Discharge Summary - Hospital Course Free Text/Narrative:: School course-patient was admitted and did well. He has a elevated white count due to his CLL. He was evaluated by PT/OT and put compression stockings on. His swelling went down. He was taken off his lisinopril his blood pressure remained stable. His Neurontin was decreased to daily at bedtime and that seemed to help to and he had no more back pain than normal. He is evaluated by PT/OT they need his services. He'll be discharged to home on home health. Brief History: Denilson is an 87-year-old male was admitted because of frequent falls. He was in the ER early for the same reason in the evening and at home while trying to navigate from bed to bathroom ,he fell twice. He did not have any significant injury but the was concerned enough to bring him to the ER. She states that he's had significant physical and mental decline in the last couple weeks with weight loss, instability of gait and low blood pressure. He has a history of HTN,stable, chronic back pain, stable, CLL stable, as Alzheimer's dementia,which is worse Diagnosis: Stroke: No - Discharge Data Discharge Date: 12/08/17 Discharge Disposition: Home, W Home Health Agency 06 Condition: Good - Discharge Diagnosis/Problem(s) (1) Physical deconditioning SNOMED Code(s): 64630278776978 ICD Code: R53.81 - OTHER MALAISE Status: Acute Current Visit: Yes (2) Pedal edema SNOMED Code(s): 016551690 ICD Code: R60.0 - LOCALIZED EDEMA Status: Chronic Current Visit: Yes - Patient Summary/Data Consults: Consultations 12/06/17 09:16 OT Evaluation and Treatment [CONS] Routine Please Evaluate and Treat. OT Reason for Consult: Discharge Planning This query below is only for informational purposes and is not editable. Admission Diagnosis/Problem: Edema of lower extremity PT Evaluation and Treatment [CONS] Routine Please Evaluate and Treat. PT Reason for Consult: Ambulation This query below is only for informational purposes and is not editable. Admission Diagnosis/Problem: Edema of lower extremity - Patient Instructions Diet: Heart Healthy Diet Activity: As Tolerated Driving: Do Not Drive Showering/Bathing: May Shower Other/Special Instructions: 1. Recheck in one week with Dr. Pioneer. - Discharge Plan *PRESCRIPTION DRUG MONITORING PROGRAM REVIEWED*: Not Applicable *COPY OF PRESCRIPTION DRUG MONITORING REPORT IN PATIENT ALPHONSE: Not Applicable Prescriptions/Med Rec: Gabapentin Enacarbil [Horizant] 300 mg PO BEDTIME #30 tab.er.24h Home Medications: Home Meds Acetaminophen [Tylenol Extra Strength] 1,000 mg PO TID 10/24/16 [History] Donepezil [Aricept] 5 mg PO BEDTIME 10/24/16 [History] Sennosides/Docusate Sodium [Senokot-S Tablet] 2 each PO BID 10/24/16 [History] Tamsulosin [Flomax] 0.4 mg PO DAILY #30 cap.er 11/07/16 [Rx] Calcium Carbonate [Tums] 1,000 mg PO Q4H PRN 12/05/17 [History] Cholecalciferol (Vitamin D3) [Vitamin D3] 2,000 unit PO DAILY 12/05/17 [History] Cyanocobalamin (Vitamin B-12) [Vitamin B-12] 1,000 mcg PO DAILY 12/05/17 [ History] Dextran 70/Hypromellose [Artificial Tears] 1 drop EYEBOTH Q4H PRN 12/05/17 [ History] Naproxen Sodium [Aleve] 220 mg PO DAILY 12/05/17 [History] Phenylephrine HCl [Suphedrine PE] 10 mg PO DAILY PRN 12/05/17 [History] Ranitidine HCl [Ranitidine] 150 mg PO BID 12/05/17 [History] Vitamin E 1,000 unit PO DAILY 12/05/17 [History] Gabapentin Enacarbil [Horizant] 300 mg PO BEDTIME #30 tab.er.24h 12/08/17 [Rx] Patient Handouts: Fall Prevention in Hospitals, Adult, Venous Thromboembolism Prevention Forms: ED Department Discharge Referrals: Helio Bowden MD [Primary Care Provider] - - Discharge Summary/Plan Comment DC Time >30 min.: No - Patient Data Vitals - Most Recent: Last Vital Signs Temp 97.5 F 12/08/17 07:40 Pulse 83 12/08/17 07:40 Resp 18 12/08/17 07:40 BP 111/69 12/08/17 07:40 Pulse Ox 96 12/08/17 09:00 Weight - Most Recent: 159 lb 3.2 oz I&O - Last 24 hours: Intake & Output 12/07/17 12/08/17 12/08/17 22:59 06:59 14:59 Intake Total 800 Output Total 600 520 Balance 200 -520 Lab Results - Last 24 hrs: Laboratory Results - last 24 hr 12/08/17 12/08/17 12/08/17 Range/Units 06:20 06:20 06:20 WBC 22.1 H (4.5-12.0) X10-3/uL RBC 3.89 L (4.30-5.75) x10(6)uL Hgb 12.5 (11.5-15.5) g/dL Hct 36.4 (30.0-51.3) % MCV 93.5 (80-96) fL MCH 32.1 (27.7-33.6) pg MCHC 34.3 (32.2-35.4) g/dL RDW 13.4 (11.5-15.5) % Plt Count 328 (125-369) X10(3)uL MPV 7.5 (7.4-10.4) fL Add Manual Diff Yes Neutrophils % (Manual) 41 L (46-82) % Lymphocytes % (Manual) 54 H (13-37) % Monocytes % (Manual) 5 (4-12) % Polychromasia Sodium 139 (135-145) mmol/L Potassium 3.8 (3.5-5.3) mmol/L Chloride 105 (100-110) mmol/L Carbon Dioxide 27 (21-32) mmol/L BUN 16 (7-18) mg/dL Creatinine 0.8 (0.70-1.30) mg/dL Est Cr Clr Drug Dosing 58.53 mL/min Estimated GFR (MDRD) > 60 (>60) BUN/Creatinine Ratio 20.0 (9-20) Glucose 90 (80-116) mg/dL Calcium 8.4 L (8.6-10.2) mg/dL NT-Pro-B Natriuret Pep 832 H (<=450) pg/mL Med Orders - Current: Current Medications Acetaminophen (Tylenol Extra Strength) 1,000 mg PO TID [facility] Last Admin: 12/08/17 09:09 Dose: 1,000 mg Artificial Tears (Liquitears 1.4% Ophth Soln) 0 ml EYEBOTH Q4H PRN PRN Reason: DRY EYES Calcium Carbonate/Glycine (Tums) 500 mg PO Q4H PRN PRN Reason: Heartburn Cholecalciferol (Vitamin D3) 1,000 units PO DAILY [facility] Last Admin: 12/08/17 09:10 Dose: 1,000 units Donepezil HCl (Aricept) 5 mg PO BEDTIME [facility] Last Admin: 12/07/17 20:04 Dose: 5 mg Enoxaparin Sodium (Lovenox) 30 mg SUBCUT Q24H [facility] Last Admin: 12/08/17 09:10 Dose: 30 mg Famotidine (Pepcid) 20 mg PO BID [facility] Last Admin: 12/08/17 09:09 Dose: 20 mg Gabapentin (Neurontin) 300 mg PO BEDTIME [facility] Last Admin: 12/07/17 20:04 Dose: 300 mg Naproxen (Naproxen Sodium) 220 mg PO DAILY [facility] Last Admin: 12/08/17 09:09 Dose: 220 mg Senna/Docusate Sodium (Senna Plus) 1 tab PO BID [facility] Last Admin: 12/08/17 09:10 Dose: 1 tab Tamsulosin HCl (Flomax) 0.4 mg PO DAILY [facility] Last Admin: 12/08/17 09:10 Dose: 0.4 mg Vitamin E (Vitamin E) 800 units PO DAILY [facility] Last Admin: 12/08/17 09:09 Dose: 800 units Discontinued Medications Calcium Carbonate/Glycine (Tums) 500 mg PO Q4H PRN PRN Reason: Heartburn
[2017-12-08] MEDS ORDERED: Bisacodyl 10 MG Supp RECTAL ONE (09:50)
[2017-12-08 13:49] VITALS: BP 124/68
== END 2017-12-08 14:50 | disposition home health service (06) | DRG 948 ==
LOC: FB.ED 05:50 → FB.MS 06:47
PROVIDERS: ADMIT Family Medicine; ATTEND Family Medicine
DX: R60.0 Localized edema (principal); C91.10 Chronic lymphocytic leukemia of B-cell type not having achieved remission; I10 Essential (primary) hypertension; K21.9 Gastro-esophageal reflux disease without esophagitis; M19.90 Unspecified osteoarthritis, unspecified site; G89.29 Other chronic pain; M54.9 Dorsalgia, unspecified; G30.9 Alzheimer's disease, unspecified; F02.80 Dementia in other diseases classified elsewhere, unspecified severity, without behavioral disturbance, psychotic disturbance, mood disturbance, and anxiety; R33.9 Retention of urine, unspecified; K59.00 Constipation, unspecified; W06.XXXA Fall from bed, initial encounter; H40.9 Unspecified glaucoma; Z88.6 Allergy status to analgesic agent; Z79.899 Other long term (current) drug therapy; R53.1 Weakness; R53.81 Other malaise; R26.2 Difficulty in walking, not elsewhere classified; R41.0 Disorientation, unspecified; H52.4 Presbyopia; H52.209 Unspecified astigmatism, unspecified eye; H35.9 Unspecified retinal disorder; H52.00 Hypermetropia, unspecified eye; R41.82 Altered mental status, unspecified; Z90.49 Acquired absence of other specified parts of digestive tract
CPT/HCPCS: 36415; 51798; 80048; 81001; 83735; 83880; 84100; 85025; 97161-GP; 97165-GO; 97530-GO; 99285; A9270-GY; J1650